=== PATIENT | female | born 1935 | race Caucasian/White ===

== ENCOUNTER 2022-05-12 19:13 | Emergency (ER) | payer OTHER, BC ==
--- OUTSIDE RECORDS SUMMARY | 2022-05-12 19:17 | XMS REPORT | Continuity of Care Document ---
:1935 Author Organization [facility] t Address [address] [place] [address] Care Team Providers Name Role Phone Jacky Rockwell Primary Care Physician KELSIE COLLINS Attending Clinician Unavailable Kelsie Collins Attending Clinician KELSIE COLLINS Attending Clinician Unavailable GERARD MCKEON Attending Clinician Unavailable Gerard Mckeon Attending Clinician Nicholas Oviedo Attending Clinician NICHOLAS OVIEDO Attending Clinician Unavailable JACKY ROCKWELL Attending Clinician Unavailable Josep Serrano Attending Clinician Naeem Chi Attending Clinician GERARD MCKEON Admitting Clinician Unavailable Gerard Mckeon Admitting Clinician NICHOLAS OVIEDO Admitting Clinician Unavailable Josep Serrano Admitting Clinician Naeem Chi Admitting Clinician Payers Payer Name Policy Type Policy Number Effective Date Expiration Date S ource MEDICARE PART A [id number] 2002 AND B 00:00:00 [facility] [id number] 2015 [facility] 00:00:00 [facility] Medicare A & B [id number] 2002 [facility] 00:00:00 Patient Medical Center Problems Condition Condition Condition Status Onset Resolution Last Treating Co mments Source Name Details Category Date Date Treatment Clinician Date Closed Closed Disease Active 2021-03 [place] fracture fracture 04-08 Health of both of both 00:00: calcanei calcanei 00 Allergies, Adverse Reactions, Alerts This patient has no known allergies or adverse reactions. Social History Social Habit Start Date Stop Date Quantity Comments Source Exposure to 2022-04-10 2022-04-20 Not sure [facility] SARS-CoV-2 (event) 00:00:00 10:35:00 Alcohol intake 2022-04-20 2022-04-20 Ex-drinker [facility] 00:00:00 00:00:00 (finding) Tobacco use and 2022-02-05 2022-02-05 Smokeless tobacco [facility] exposure 00:00:00 00:00:00 non-user Sex Ass[birth year] At [birth year] [facility] 00:00:00 00:00:00 Smoking Status Start Date Stop Date Source Never smoked tobacco [facility] Medications Ordered Filled Start Stop Current Ordering Indication Dosage Frequency Signature Comments Components Source Medication Medication Date Date Medication? Clinician (SIG) Name Name traMADol 2021-03 Yes [id number] 50mg Q6H Take 1 [facility] (Ultram) 50 2-05 tablet (50 He alth MG tablet 00:00: mg total) 00 by mouth every 6 (six) hours if needed for moderate pain. traMADol 2021-03 Yes [id number] 50mg Q6H Take 1 [facility] (Ultram) 50 2-05 tablet (50 He alth MG tablet 00:00: mg total) 00 by mouth every 6 (six) hours if needed for moderate pain. traMADol 2021-03 Yes [id number] 50mg Q6H Take 1 [facility] (Ultram) 50 2-05 tablet (50 He alth MG tablet 00:00: mg total) 00 by mouth every 6 (six) hours if needed for moderate pain. traMADol 2021-03 Yes [id number] 50mg Q6H Take 1 [facility] (Ultram) 50 2-05 tablet (50 He alth MG tablet 00:00: mg total) 00 by mouth every 6 (six) hours if needed for moderate pain. traMADol 2021-03 Yes [id number] 50mg Q6H Take 1 [facility] (Ultram) 50 2-05 tablet (50 He alth MG tablet 00:00: mg total) 00 by mouth every 6 (six) hours if needed for moderate pain. traMADol 2021-03 Yes Take by [facility] (Ultram) 50 2-02 mouth. Health MG tablet 14:27: 25 traMADol 2021-03 Yes Take by UT (Ultram) 50 2-02 mouth. Health MG tablet 14:27: 25 traMADol 2021-03 Yes Take by UT (Ultram) 50 2-02 mouth. Health MG tablet 14:27: 25 traMADol 2021-03 Yes Take by UT (Ultram) 50 2-02 mouth. Health MG tablet 14:27: 25 traMADol 2021-03 Yes Take by UT (Ultram) 50 2-02 mouth. Health MG tablet 14:27: 25 traMADol 2021-03 Yes Take by UT (Ultram) 50 2-02 mouth. Health MG tablet 14:27: 25 omeprazole 2021-03 Yes Daily [facility] (PriLOSEC) 2-[address] 14:26: capsule 16 gabapentin 2021-03 Yes Three [facility] (Neurontin) 2-02 Times A [facility]alt [facility] 300 MG 14:26: Day capsule 16 omeprazole 2021-03 Yes Daily [facility] (PriLOSEC) 2-[address] 14:26: capsule 16 gabapentin 2021-03 Yes Three [facility] (Neurontin) 2-02 Times A [facility] 300 MG 14:26: Day capsule 16 omeprazole 2021-03 Yes Daily [facility] (PriLOSEC) 2-[address] 14:26: capsule 16 gabapentin 2021-03 Yes Three [facility] (Neurontin) 2-02 Times A [facility]alt [facility] 300 MG 14:26: Day capsule 16 omeprazole 2021-03 Yes Daily [facility] (PriLOSEC) 2-[address] 14:26: capsule 16 gabapentin 2021-03 Yes Three UT (Neurontin) 2-02 Times A [facility]alt [facility] 300 MG 14:26: Day capsule 16 omeprazole 2021-03 Yes Daily [facility] (PriLOSEC) 2-[address] 14:26: capsule 16 gabapentin 2021-03 Yes Three UT (Neurontin) 2-02 Times A [facility]alt [facility] 300 MG 14:26: Day capsule 16 omeprazole 2021-03 Yes Daily [facility] (PriLOSEC) 2-[address] 14:: capsule 16 gabapentin 2021-03 Yes Three UT (Neurontin) 2-02 Times A [facility]alt [facility] 300 MG 14:26: Day capsule 16 gabapentin 2021-03 Yes 800mg Q.[id number] Take 800 UT (Neurontin) 0-31 [id number] mg by H ealth 400 MG 00:00: 3D mouth in capsule 00 the morning and 800 mg at noon and 800 mg in the evening. gabapentin 2021-03 Yes 800mg Q.[id number] Take 800 UT (Neurontin) 0-31 [id number] mg by H ealth 400 MG 00:00: 3D mouth in capsule 00 the morning and 800 mg at noon and 800 mg in the evening. gabapentin 2021-03 Yes 800mg Q.[id number] Take 800 UT (Neurontin) 0-31 [id number] mg by H ealth 400 MG 00:00: 3D mouth in capsule 00 the morning and 800 mg at noon and 800 mg in the evening. gabapentin 2021-03 Yes 800mg Q.[id number] Take 800 UT (Neurontin) 0-31 [id number] mg by H ealth 400 MG 00:00: 3D mouth in capsule 00 the morning and 800 mg at noon and 800 mg in the evening. gabapentin 2021-03 Yes 800mg Q.[id number] Take 800 UT (Neurontin) 0-31 [id number] mg by H ealth 400 MG 00:00: 3D mouth in capsule 00 the morning and 800 mg at noon and 800 mg in the evening. gabapentin 2021-03 Yes 800mg Q.[id number] Take 800 UT (Neurontin) 0-31 [id number] mg by H ealth 400 MG 00:00: 3D mouth in capsule 00 the morning and 800 mg at noon and 800 mg in the evening. Ciprofloxac Ciprofloxac 2019-0 Yes Juwan [address] [facility] in Hcl in Hcl 8-13 [place] [facility] (Cipro) 500 (Cipro) 500 00:00: Pa Patient Mg Tablet Mg Tablet 00 Medic al Center Acetaminoph Acetaminoph Yes [address] [facility] en 325 Mg en 325 Mg Hours as L ukes Tablet Tablet needed for [facility] Alendronate Alendronate Yes [address] [facility] Sodium 70 Sodium 70 [facility] Mg Tablet Mg Tablet [facility] Ascorbic Ascorbic Yes Daily [facility] Acid Acid [facility] (Vitamin C) (Vitamin C) P atient 500 Mg 500 Mg Medical Capsule.er Capsule.er Ceferino ter Cholecalcif Cholecalcif Yes [address] [facility] (Vitamin (Vitamin Patient D3) D3) Medical (Vitamin D) (Vitamin D) C enter 400 Unit 400 Unit Capsule Capsule Cyanocobala Cyanocobala Yes Monthly [facility] min min [facility] (Vitamin (Vitamin Patient B-12) 1,000 B-12) 1,000 M edical Mcg Tab Mcg Tab Center Gabapentin Gabapentin Yes [address] 400 Mg 400 Mg Times A [facility] Capsule Capsule Day Patient [facility] Meloxicam Meloxicam Yes 7.[address] 7.5 Mg 7.5 Mg [facility] Tablet Tablet Patient [facility] Omeprazole Omeprazole Yes [address] 40 Mg 40 Mg [facility] Capsule.dr Yee.dr Vergara [facility] Pramipexole Pramipexole Yes .[address] Di-Hcl Di-Hcl Times A [facility] (Pramipexol (Pramipexol Day P atient e e Medical Dihydrochlo Dihydrochlo C enter ride) 0.25 ride) 0.25 Mg Tablet Mg Tablet Tylenol Pm Tylenol Pm Yes 1 Bedtime [facility] Patient [facility] Center Procedures Procedure Date / Time Performed Performing Clinician [facility] SPLINT APPLICATION 2022-02-05 20:15:00 Darius Becker [facility] Total replacement of 2018-10-16 00:00:00 NICHOLAS OVIEDO [facility] knee joint Patient [facility] Encounters Start End Encounter Admission Attending Care Care Encounter Source Date/Time Date/Time Type Type Clinicians Facility Department ID 2022-03-17 Outpatient [facility] [id number] [place] 10:55:54 [id number] [facility] 2022-02-05 Outpatient [facility] [id number] [place] 13:34:57 [id number] [facility] 2022-02-01 Outpatient [facility] [id number] [place] 10:22:46 [id number] [facility] 2022-01-26 Outpatient [facility] [id number] [place] 13:02:56 [id number] [facility] 2022-05-12 2022-05-12 Outpatient GAUV[place], [facility] [id number] [place] 10:45:00 10:45:00 [facility] 2022-05-12 2022-05-12 Outpatient [facility] [id number] [place] 10:45:00 10:45:00 [facility] 2022-05-10 2022-05-10 Outpatient [facility] [id number] [place] 00:00:00 00:00:00 [facility] 2022-04-20 2022-04-20 Outpatient [facility] [id number] [place] 10:45:00 12:49:08 [facility] 2022-04-20 2022-04-20 Office GAUVAIN, [facility] [id number] [place] 10:45:00 12:48:56 [id number] [facility] MEDICAL [id number] [address] 4 [id number] 2022-04-12 2022-04-12 Outpatient NAMUVAIN, [facility] [id number] [place] 13:45:00 13:45:00 [facility] 2022-04-12 2022-04-12 Outpatient [facility] [id number] [place] 13:45:00 13:45:00 [facility] 2022-03-22 2022-03-22 Outpatient [facility] [id number] [place] 00:00:00 16:39:02 [facility] 2022-03-22 2022-03-22 Office Gauvain, [facility] [id number] [place] 13:45:00 14:45:49 [id number] [facility] MEDICAL [id number] [address] 5 [id number] 2022-02-22 2022-02-22 Outpatient [facility] [id number] [place] 00:00:00 16:44:02 [facility] 2022-02-22 2022-02-22 Office Gauvain, [facility] [id number] UT 14:45:00 16:43:46 Visit Kelsie [place] 350.1.13.58 [facility] [id number] [address] [id number] 2022-02-09 2022-02-09 Outpatient Karina, [facility] MHPL [id number] 12:28:00 22:25:[address] 2022-02-09 2022-02-09 Outpatient KARINA, MHBL MHBL [id number] MHBL 12:28:00 22:25:00 [facility] 2022-02-09 2022-02-09 Outpatient KARINA, [facility] [id number] UT 17:00:00 17:00:00 [facility] 2022-02-05 2022-02-05 Office Karina [facility] [id number] UT 14:15:00 17:06:01 Visit [facility] [id number] [facility] [id number] [address] [id number] 2022-01-26 2022-01-28 Inpatient E CECILLE [facility] [id number] 15:42:00 12:49:00 [facility] Derik julio [facility] 2022-01-25 2022-01-28 Outpatient Linda, MHSE MHSE [id number] 12:45:46 12:49:00 Sali 00 Frankyjihugo 2018-12-05 2019-01-03 Outpatient Ivelisse [id number] 13:50:00 23:59:00 Nicholas Mendoza [id number] 2018-10-16 2018-10-16 Admitted 3 IVELISSE [facility] [id number] 10:13:00 10:13:00 Inpatient NICHOLAS mccracken (obs) [facility] 2018-06-11 2018-06-12 Outpatient Maggie MHSE MHSE [id number] 09:11:00 15:09:00 , Josep 03 Wesley 2018-06-11 2018-06-11 Outpatient E [facility] [place] MED [id number] 14:38:00 14:38:00 [facility] 2016-07-01 2016-07-01 Outpatient MARIANNE Chi [facility] [place] [id number] 11:07:00 23:59:00 Naeem 17 2015 2015 Outpatient Alon [facility] [id number] 12:27:00 23:59:00 Naeem 02 Results Test Description Test Time Test Comments Results Result Comments Source Hemoglobin 2018-10-17 05:50:00 Test Item Value Reference Range Interpretation Comme nts Hemoglobin (test code = 55496-3) 8.7 12.0-16.0 [facility] 05:50:00 Test Item Value Reference Range Interpretation Comments Hematocrit (test code = 4544-3) 26.8 34.2-44.1 L [facility] 1-2 [id number] 11:43:00 [facility] [address] [place] [address] Patient Name: KATHRINE ESTRADA MR #: [id number] : 1935 Age/Sex: 83/F Req #: [id number] Adm Physician: NICHOLAS OVIEDO MD Ordered by: NICHOLAS OVIEDO MD Report #: [id number] [facility] Room[facility]Bed: [place] [address] Procedure: [id number] DX/KNEE RIGHT 1-2 VIEWS Exam Date: 10/16/18 ExamTime: 1110 REPORT STATUS: Signed EXAMINATION: KNEE RIGHT 1-2 VIEWS INDICATION: Postoperative COMPARISON: None FINDINGS: AP and lateral views of the right knee demonstrate anatomic alignment status post right total knee replacement. No unexpected acute fracture. Subcutaneous emphysema and surgical skin kaya in place. Small joint effusion. IMPRESSION: Anatomic alignment status post right total kneereplacement. Signed by: Nicole Wheeler MD on 10/16/2018 11:43 AM Dictated By: NICOLE WHEELER MD 1143 Transcribed By: LOUISA on 10/16/18 1143 COPY TO: NICHOLAS OVIEDO MD CHEST 2 [id number] 13:05:00 [facility] [address] [place] [address] Patient Name: KATHIRNE ESTRADA MR #: [id number] : 1935 Age/Sex: 83/F Req #: [id number] Adm Physician: Ordered by: JACKY ROCKWELL MD Report #: [id number] Location: [facility] Room/Bed: Procedure: [id number] DX/CHEST 2 VIEWS Exam Date: 10/11/18 Exam Time: 1150 REPORT STATUS: Signed EXAMINATION: CHEST 2 VIEWS INDICATION: Pre-operative COMPARISON: Chest radiograph of 05/30/2018 FINDINGS: LINES/TUBES:None LUNGS:The lungs are hyperinflated. Mild bilateral upper lobe predominant emphysema. No focal consolidation or pulmonary edema. Right lower lobe calcified granuloma. PLEURA:No pleuraleffusion or pneumothorax. MEDIASTINUM:The cardiomediastinal silhouette appears normal in size and shape. Atherosclerotic calcifications of the thoracic aorta. BONES/SOFT TISSUES:Compression fractures of 3 contiguous vertebral bodies, likely T12, L1 and L2. ABDOMEN:No free air under the diaphragm. IMPRESSION: Hyperinflated lungs. No focal pneumonia or pulmonary edema. Age-indeterminate compression frac tures likely at T12, L1 and L2. Signed by: Nicole Wheeler MD on 10/11/2018 1:09 PM Dictated By: NICOLE WHEELER MD 1309 Transcribed By: LOUISA on 10/11/18 130 COPY TO: JACKY ROCKWELL [facility] 2 [id number] 13:59:00 [place] [address] Patient Name: KATHRINE ESTRADA MR #: [id number] : 1935 Age/Sex: 82/F Req #: [id number] Adm Physician: Ordered by: JACKY ROCKWELL MD Report #: [id number] Location: [facility] Room/Bed: Procedure: [id number] DX/CHEST 2 VIEWS Exam Date: Exam Time: REPORT STATUS: Signed EXAMINATION: PA and lateral views of the chest. COMPARISON: None CLINICAL HISTORY: Bronchitis DISCUSSION: Lines/tubes: None. Lungs: The lungs are well inflated and clear. No pneumonia or pulmonary edema. Pleura: No pleural effusion or pneumothorax. Heart and mediastinum: The cardiomediastinal silhouette is normal. Bones and soft tissues: No acute bony abnormalities. Remote compression fractures of the mid thoracic spine. IMPRESSION: No acute cardiopulmonary abnormalities. Signed by: Dr. Genevieve Valiente M.D. on 05/30/2018 2:00 PM Dictated By: GENEVIEVE VALIENTE MD 1400 Transcribed By: LOUISA on 05/30/18 1400 COPY TO: JACKY ROCKWELL MD
[2022-05-12] MEDS ORDERED: ONDANSETRON 4 MG/2 ML VIAL ONE (20:23)
[2022-05-12] MEDS ORDERED: NA CHLORIDE 0.9% 500 ML ONE (20:23)
[2022-05-12 21:11] LABS: SARS-CoV-2 Antigen Rapid Res Negative (Negative)
[2022-05-12] MEDS ORDERED: ACETAMINOPHEN 500 MG TAB ONE (21:29)
[2022-05-12 22:22] LABS: Absolute Lymphocytes (CBC) 2.3 K/uL (0.7-4.9); Lymphocytes % 25.1 % (15.3-44.8); MCV 74.6 fL (80-100); MPV 7.8 fL (7.6-11.3); RBC Red Blood Cell Count 2.74 M/uL (3.86-4.86)
[2022-05-12 22:24] LABS: Hematocrit 20.4 % (36.0-45.0)
[2022-05-12 22:35] LABS: AST/SGOT 9 U/L (15-37); Albumin 2.7 g/dL (3.4-5.0); Alkaline Phosphatase 40 U/L (45-117); BUN Blood Urea Nitrogen 31 mg/dL (7-18); Bicarbonate 24 mmol/L (21-32); Bilirubin Total 0.3 mg/dL (0.2-1.0); Glomerular Filtration Rate 88 ml/min (=/>90); Glucose Level 103 mg/dL (74-106); Lipase 12 U/L (13-75); Potassium 3.4 mmol/L (3.5-5.1); Protein, Total 5.9 g/dL (6.4-8.2); Sodium Level 138 mmol/L (136-145); Troponin High Sensitivity 5.8 pg/mL (<58.9)
[2022-05-12] MEDS ORDERED: PANTOPRAZOLE 40 MG INJ ONE (22:37)
[2022-05-12 22:46] LABS: ALT/SGPT < 10 U/L (13-56)
[2022-05-12] MEDS ORDERED: NA CHLORIDE 0.9% 250 ML ONE (23:17)
[2022-05-12 23:24] LABS: Protime INR 1.17
[2022-05-13] MEDS ORDERED: GABAPENTIN 300 MG CAP ONE (01:36)
[2022-05-13 03:44] VITALS: BP 142/83; TEMP 98.7; O2SAT 95
--- NOTE | 2022-05-13 16:20 | EKG ---
Test Date: 2022-05-12 Test Time: 21:21:48 [employer] Cutter: JIGAR MEASUREMENT RESULTS: Intervals: Rate: 111 IN: 168 QRSD: 66 QT: 340 QTc: 462 [place]: P: 72 IN: 168 QRS: 63 T: 79 INTERPRETIVE STATEMENTS: Sinus tachycardia Anterior infarct, age undetermined Abnormal ECG No previous ECG available for comparison Electronically Signed On 05-13-22 16:19:29 CHIEF MECHANICAL ENGINEER by Jose Medley
--- NOTE | 2022-05-28 15:34 | ER ---
Nurse's Notes [facility] Name: Juliann Shelton Age: 86 yrs Sex: Female : 1935 Arrival Date: 05/12/2022 Time: 19:40 Bed 18 Private MD: Diagnosis: GI Bleed/ Gastrointestinal hemorrhage, unspecified Presentation: 05/12 19:49 Chief complaint: Patient states: she has not been feeling well for 2 days feels weak, bb feels like she is going to pass out daughter states she has been vomiting several times dark colored emesis. Coronavirus screen: At this time, the client does not indicate any symptoms associated with coronavirus-19. Ebola Screen: No symptoms or risks identified at this time. Initial Sepsis Screen: Does the patient meet any 2 criteria? No. Patient's initial sepsis screen is negative. Does the patient have a suspected source of infection? No. Patient's initial sepsis screen is negative. Risk Assessment: Do you want to hurt yourself or someone else? Patient reports no desire to harm self or others. Onset of symptoms was May 10, 2022. 19:49 Method Of Arrival: EMS bb 19:49 Acuity: JOEY 2 bb Triage Assessment: 19:51 General: Appears uncomfortable, ill, Behavior is flat, listless. Neuro: Level of bb Consciousness is listless, Oriented to person, place, situation. Cardiovascular: Capillary refill < 3 seconds Patient's skin is warm and dry. Rhythm is sinus tachycardia. Respiratory: Respiratory effort is unlabored. GI: Reports vomiting. Derm: Skin is pale. Musculoskeletal: Circulation, motion, and sensation intact. Historical: - Allergies: 19:51 No Known Allergies; bb - Home Meds: 19:51 tramadol-acetaminophen 37.5-325 mg Oral tablet 2 tab 2 times per day [Active]; bb sennosides oral [Active]; - Immunization history:: Pfizer x 3. - Social history:: Smoking status: Patient denies any tobacco usage or history of. Screenin:43 [facility] ED Fall Risk Assessment (Adult) History of falling in the last 3 months, aa9 including since admission No falls in past 3 months (0 pts) Confusion or Disorientation No (0 pts) Intoxicated or Sedated No (0 pts) Impaired Gait Yes (1 pt) Mobility Assist Device Used Yes (1 pt) Altered Elimination Yes (1 pt) Score/Fall Risk Level 3 or more points = High Risk Oriented to surroundings, Maintained a safe environment, Educated pt \T\ family on fall prevention, incl call for assistance when getting out of bed, Provided non-skid footwear. Abuse screen: Denies threats or abuse. Denies injuries from another. Nutritional screening: Has had N/V for 3 or more days. Nutritional screening: Has had N/V for 3 or more days. Tuberculosis screening: No symptoms or risk factors identified. Assessment: 20:30 General: Appears uncomfortable, Behavior is cooperative, anxious. Pain: Denies pain. aa9 20:30 General: Reports generalized weakness. Neuro: Level of Consciousness is awake, alert, aa9 obeys commands, Oriented to person, place, time, situation. Cardiovascular: Patient's skin is warm and dry. Rhythm is sinus tachycardia. Respiratory: Airway is patent Respiratory effort is even, unlabored. GI: Abdomen is flat, Reports nausea, vomiting, Patient currently denies diarrhea. : No signs and/or symptoms were reported regarding the genitourinary system. Derm: Skin is intact, is fragile, is thin, Skin is pale. 22:42 Reassessment: Patient appears in no apparent distress at this time. pt signed consent aa9 forms for blood transfusion. 23:55 Reassessment: Patient appears in no apparent distress at this time. Blood products aa9 infusing via L FA IV site, Pt tolerating well, daughter at bedside, VS are stable. 05/13 00:00 Reassessment: Patient appears in no apparent distress at this time. Patient is alert, aa9 oriented x 3, equal unlabored respirations, skin warm/dry/pink. Patient states feeling better. 01:12 Reassessment: Patient appears in no apparent distress at this time. Patient and/or aa9 family updated on plan of care and expected duration. Pain level reassessed. Patient is alert, oriented x 3, equal unlabored respirations, skin warm/dry/pink. 02:10 Reassessment: Patient appears in no apparent distress at this time. Patient and/or aa9 family updated on plan of care and expected duration. Pain level reassessed. Patient is alert, oriented x 3, equal unlabored respirations, skin warm/dry/pink. blood transfusion completed. 02:10 Reassessment: Patient appears in no apparent distress at this time. attempted to call aa9 report to [phone] with no reponse. 02:15 Reassessment: attempted to call report to [phone], no response, daughter signed aa9 consent, denies concerns understands need for transfer. 03:03 Reassessment: Patient appears in no apparent distress at this time. Patient and/or aa9 family updated on plan of care and expected duration. Pain level reassessed. Patient is alert, oriented x 3, equal unlabored respirations, skin warm/dry/pink. Report provided to [facility]. 03:09 Reassessment: Patient appears in no apparent distress at this time. [facility] at bedside. aa9 04:52 Reassessment: Sophie from receiving facility called, report provided. aa9 Vital Signs: 05/12 19:49 BP 109 / 70; Pulse 121; Resp 18 S; Temp 98.1(O); Pulse Ox 95% on R/A; Weight 68.04 kg bb (R); Height 5 ft. 0 in. (R); 20:45 BP 112 / 57; Pulse 105; Resp 16 S; Temp 98.7; Pulse Ox 96% on R/A; aa9 21:00 BP 102 / 64; Pulse 112; Resp 17 S; Pulse Ox 100% on R/A; aa9 22:30 BP 135 / 66; Pulse 116; Resp 18 S; Pulse Ox 100% on R/A; aa9 23:30 BP 145 / 69; Pulse 113; Resp 19 S; Temp 98.7(O); Pulse Ox 100% on R/A; aa9 05/13 00:15 BP 127 / 58; Pulse 116; Resp 19; Temp 98.2(O); Pulse Ox 99% on R/A; aa9 01:30 BP 119 / 76; Pulse 110; Resp 19 S; Temp 98.7(O); Pulse Ox 98% on R/A; aa9 02:10 BP 150 / 76; Pulse 106; Resp 19 S; Temp 98.2(O); Pulse Ox 99% on R/A; aa9 03:00 BP 155 / 64; Pulse 110; Resp 19 S; Temp 98.3(O); Pulse Ox 99% on R/A; aa9 05/12 19:49 Body Mass Index 29.29 (68.04 kg, 152.4 cm) bb ED Course: 05/12 19:40 Patient arrived in ED. vc1 19:44 Efrem Mckeon MD is Attending Physician. bs3 19:51 Triage completed. bb 19:51 Arm band placed on. Family accompanied patient. bb 20:32 Missed attempt(s): 20 gauge in right forearm. Bleeding controlled, band aid applied, aa9 catheter tip intact. 20:57 Em Irby, ISAEL is Primary Nurse. aa9 21:06 Patient has correct armband on for positive identification. Bed in low position. Call aa9 light in reach. Side rails up X2. Client placed on continuous cardiac and pulse oximetry monitoring. NIBP monitoring applied. 22:32 Initiated transfer with Nan at [facility]. rv1 22:40 [facility] declined transfer due to not having specialty needed. rv1 22:43 Initiated transfer with Nan at [facility]. rv1 03 03:00 No provider procedures requiring assistance completed. aa9 03:00 Patient transferred, IV remains in place. aa9 Administered Medications: 05/12 20:57 Drug: NS 0.9% IV 500 ml Route: IV; Rate: bolus; Site: left hand; aa9 22:20 Follow up: Response: No adverse reaction; IV Status: Completed infusion; IV Intake: aa9 500ml 20:57 Drug: Ondansetron IVP 8 mg Route: IVP; Site: left hand; aa9 22:20 Follow up: Response: No adverse reaction aa9 21:26 Drug: Acetaminophen PO 1000 mg Route: PO; aa9 22:19 Follow up: Response: No adverse reaction aa9 23:06 Drug: Pantoprazole IVP 40 mg Route: IVP; Site: left hand; aa9 05/13 01:35 Drug: Gabapentin PO 400 mg Route: PO; aa9 Medication: 05/12 22:44 VIS not applicable for this client. aa9 Intake: 22:20 IV: 500ml; Total: 500ml. aa9 Outcome: 05/13 00:43 ER care complete, transfer ordered by . bs3 03:00 Condition: stable aa9 03:00 Transferred by ground EMS to [facility], Transfer form completed. aa9 03:00 Instructed on the need for transfer. 03:11 Patient left the ED. aa9 Signatures: Thea Kauffman RN RN bb Lyla Ferris RN RN vc1 Em Irby RN RN aa9 Efrem Mckeon MD MD bs3 Linnette Aguilar rv1 Corrections: (The following items were deleted from the chart) 05/12 19:54 19:51 Home Meds: tramadol; bb bb 23:54 22:32 Initiated transfer with Nan at [facility] rv1 rv1 23:56 22:32 Initiated transfer with Nan at [facility]. rv1 rv1 23:56 22:40 [facility] declined transfer due to not having specialty rv1 needed. rv1 23:57 22:43 Initiated transfer with Nan with [facility] at the [facility] rv1 rv1 05/13 02:26 02:23 [facility] called for Doc to Doc with FRANSISCO Connor rv1 rv1
--- NOTE | 2022-05-28 15:34 | EDPHYS ---
Physician Documentation [facility] Name: Juliann Shelton Age: 86 yrs Sex: Female : 1935 Arrival Date: 05/12/2022 Time: 19:40 Bed 18 Private MD: ED Physician Efrem Mckeon HPI: 05/12 20:00 This 86 yrs old Female presents to ER via EMS with complaints of vomiting, bs3 dizziness and weakness. 20:00 Pt reports a hx of gastritis, and ulcer 30+ years ago pw dark brown/black vomit several bs3 times ove the past 24 hours, never had this before, nothing makes it better or worse. After this she developed nausea and dizziness. She now feels weak and tired. no fevers chills chest pain shortness of breath or anything else bothering her no abdominal pain, not on ac. Historical: - Allergies: 19:51 No Known Allergies; bb - Home Meds: 19:51 tramadol-acetaminophen 37.5-325 mg Oral tablet 2 tab 2 times per day [Active]; bb sennosides oral [Active]; - Immunization history:: Pfizer x 3. - Social history:: Smoking status: Patient denies any tobacco usage or history of. ROS: 20:00 Constitutional: Negative for fever, chills, tired bs3 20:00 All other systems are negative. Exam: 20:00 Constitutional: Patient appears frail appears tired and pale Head/Face: bs3 Normocephalic, atraumatic. Eyes: Pupils equal round and reactive to light, extra-ocular motions intact. Lids and lashes normal. ENT: mmm, no posterior phyarngeal erythema Chest/axilla: Normal chest wall appearance and motion. Nontender with no deformity. No lesions are appreciated. Cardiovascular: Tachycardic, no murmur Respiratory: Lungs have equal breath sounds bilaterally, clear to auscultation, no respiratory distress Abdomen/GI: Soft, non-tender, no rebound or guarding, no stool in rectal vault Skin: Warm, dry with normal turgor. Appears pale MS/ Extremity: Pulses equal, no cyanosis. Neurovascular intact. Full, normal range of motion. Neuro: Awake and alert, GCS 15, oriented to person, place, time, and situation. Cranial nerves II-XII grossly intact. Motor strength 5/5 in all extremities. Sensory grossly intact. Psych: Awake, alert, with orientation to person, place and time. Behavior, mood, and affect are within normal limits. 21:23 Sinus tachycardia [address] elevations or depressions QTc 462 as interpreted by myself bs3 Vital Signs: 19:49 BP 109 / 70; Pulse 121; Resp 18 S; Temp 98.1(O); Pulse Ox 95% on R/A; Weight 68.04 kg bb (R); Height 5 ft. 0 in. (R); 20:45 BP 112 / 57; Pulse 105; Resp 16 S; Temp 98.7; Pulse Ox 96% on R/A; aa9 21:00 BP 102 / 64; Pulse 112; Resp 17 S; Pulse Ox 100% on R/A; aa9 22:30 BP 135 / 66; Pulse 116; Resp 18 S; Pulse Ox 100% on R/A; aa9 23:30 BP 145 / 69; Pulse 113; Resp 19 S; Temp 98.7(O); Pulse Ox 100% on R/A; aa9 05/13 00:15 BP 127 / 58; Pulse 116; Resp 19; Temp 98.2(O); Pulse Ox 99% on R/A; aa9 01:30 BP 119 / 76; Pulse 110; Resp 19 S; Temp 98.7(O); Pulse Ox 98% on R/A; aa9 02:10 BP 150 / 76; Pulse 106; Resp 19 S; Temp 98.2(O); Pulse Ox 99% on R/A; aa9 03:00 BP 155 / 64; Pulse 110; Resp 19 S; Temp 98.3(O); Pulse Ox 99% on R/A; aa9 05/12 19:49 Body Mass Index 29.29 (68.04 kg, 152.4 cm) bb MDM: 05/12 20:00 Differential diagnosis: Nonspecific abd pain, gastritis, cholecystitis, pancreatitis, bs3 viral gastroenteritis, gastroenteritis, myocardial infarction, upper gi bleed. Data reviewed: vital signs, nurses notes, EMS record. Consideration of Admission/Observation Patient was admitted/placed on observation. Test considered but Not performed: CT: Considered CT but no active massive upper GI bleed. Historians other than the Patient: EMS: Saw evidence of coffee-ground emesis at home, reported more tachycardic, given 250cc NS [employer]ICIAN. Daughter/Son: pt tired and frail, therefore daughter provided hx. 20:14 Patient medically screened. bs3 23:00 ED course: Labs notable for anemia given the coffee-ground emesis consistent with upper bs3 GI bleed we will transfuse we will start Protonix we will transfer at patient's request attempting [facility]. 05/13 00:41 ED course: pt accepted by Dr. Melgar at [facility] . bs3 00:42 ED course: [facility]. bs3 05/12 19:59 Order name: CBC with Diff; Complete Time: 00:38 bs3 05/12 19:59 Order name: CMP; Complete Time: 00:38 bs3 05/12 19:59 Order name: Lipase; Complete Time: 00:38 bs3 05/12 19:59 Order name: Troponin High Sensitivity; Complete Time: 00:38 bs3 05/12 19:59 Order name: SARS-COV-2 Antigen Rapid; Complete Time: 21:45 bs3 05/12 19:59 Order name: Type And Screen bs3 05/12 19:59 Order name: Ptt, Activated; Complete Time: 00:38 bs3 05/12 19:59 Order name: PT-INR; Complete Time: 00:38 bs3 05/12 23:03 Order name: ABO/RH no charge; Complete Time: 00:38 EDMS 05/12 23:06 Order name: Packed RBC Leukored EDMS 05/12 19:59 Order name: IV Saline Lock; Complete Time: 21:26 bs3 05/12 19:59 Order name: Labs collected and sent; Complete Time: 22:20 bs3 05/12 20:00 Order name: EKG - Nurse/Tech; Complete Time: 21:26 bs3 05/12 20:00 Order name: IV - Large Bore; Complete Time: 21:26 bs3 05/12 22:29 Order name: Consent for Blood Transfusion; Complete Time: 22:44 bs3 Administered Medications: 05/12 20:57 Drug: NS 0.9% IV 500 ml Route: IV; Rate: bolus; Site: left hand; aa9 22:20 Follow up: Response: No adverse reaction; IV Status: Completed infusion; IV Intake: aa9 500ml 20:57 Drug: Ondansetron IVP 8 mg Route: IVP; Site: left hand; aa9 22:20 Follow up: Response: No adverse reaction aa9 21:26 Drug: Acetaminophen PO 1000 mg Route: PO; aa9 22:19 Follow up: Response: No adverse reaction aa9 23:06 Drug: Pantoprazole IVP 40 mg Route: IVP; Site: left hand; aa9 05/13 01:35 Drug: Gabapentin PO 400 mg Route: PO; aa9 Disposition Summary: 05/13/22 00:43 Transfer Ordered Transfer Location: [facility] bs3 Reason: Higher level of care bs3 Condition: Fair bs3 Problem: new bs3 Symptoms: have improved bs3 Accepting Physician: Dr. melgar(05/13/22 03:11) aa9 Diagnosis - GI Bleed/ Gastrointestinal hemorrhage, unspecified bs3 Discharge Instructions: - Discharge Summary Sheet rv1 Forms: - Medication Reconciliation Form bs3 - SBAR form rv1 Critical care time excluding procedures: 00:42 Critical care time: Bedside Care: 36 minutes, Family Intervention: 5 minutes. Total bs3 time: 41 minutes Signatures: Dispatcher [employer] EDThea Vaca RN RN bb Avalos, Aylin, RN RN aa9 Efrem Mckeon MD MD bs3 Corrections: (The following items were deleted from the chart) 05/12 19:54 19:51 Home Meds: tramadol; jose garcia 20:37 20:00 Constitutional: Patient appears frail appears tired and pale Head/Face: bs3 Normocephalic, atraumatic. Eyes: Pupils equal round and reactive to light, extra-ocular motions intact. Lids and lashes normal. ENT: mmm, no posterior phyarngeal erythema Chest/axilla: Normal chest wall appearance and motion. Nontender with no deformity. No lesions are appreciated. Cardiovascular: Tachycardic, no murmur Respiratory: Lungs have equal breath sounds bilaterally, clear to auscultation, no respiratory distress Abdomen/GI: Soft, non-tender, no rebound or guarding Skin: Warm, dry with normal turgor. Appears pale MS/ Extremity: Pulses equal, no cyanosis. Neurovascular intact. Full, normal range of motion. Neuro: Awake and alert, GCS 15, oriented to person, place, time, and situation. Cranial nerves II-XII grossly intact. Motor strength 5/5 in all extremities. Sensory grossly intact. Psych: Awake, alert, with orientation to person, place and time. Behavior, mood, and affect are within normal limits. bs3 05/13 03:11 00:43 Dr. melgar bs3 aa9
== END 2022-05-13 03:11 | disposition short-term general hospital (02) ==
LOC: ER 19:13
PROC: 30233N1 Transfusion of Nonautologous Red Blood Cells into Peripheral Vein, Percutaneous Approach (ICD-10-PCS; principal; 2022-05-13)
DX: K92.2 Gastrointestinal hemorrhage, unspecified (principal); Z20.822 Contact with and (suspected) exposure to COVID-19
CPT/HCPCS: 96361; 93005; 85025; 36415; 86900; 86850; 85610; 86901; 85730; 84484; 83690; 80053; 96375; 96374; 99285; 87811; 36430; C9113; J2405; P9016; J7050; J7040

== ENCOUNTER 2023-12-27 17:53 | Emergency (ER) | payer OTHER, BC ==
--- NOTE | 2023-12-27 19:41 | RAD REPORT ---
EXAM: Chest Pa And Lat (2 Views) HISTORY: Cough;Congestion COMPARISON: 05/06/2023 FINDINGS: LUNGS/PLEURA: The lungs are clear. No pleural effusions or pneumothorax. No pulmonary edema. MEDIASTINUM: The mediastinal silhouette is within normal limits. CARDIAC: The cardiac silhouette is within normal limits. UPPER ABDOMEN: No significant abnormality. BONES: No acute fracture. Chronic lower thoracic/upper lumbar compression fractures. Remote right-martha ed rib fractures. LINES/TUBES/OTHER: N/A IMPRESSION: No evidence of acute cardiopulmonary disease
[2023-12-27 19:55] LABS: Absolute Eosinophils 0.2 K/uL (0-0.5); Absolute Lymphocytes (CBC) 2.2 K/uL (0.7-4.9); Absolute Monocytes 0.6 K/uL (0.1-1.3); Absolute Neutrophil 2.4 K/uL (1.8-8.0); Basophils % 0.7 % (0-1.3); Eosinophils % 3.2 % (0-4.4); Hemoglobin 12.3 g/dL (12.0-15.0); Lymphocytes % 40.2 % (15.3-44.8); MCH 32.6 pg (27.0-35.0); MCHC 33.4 g/dL (32.0-36.0); MCV 97.7 fL (80-100); Neutrophils % 44.9 % (41.7-73.7); Nucleated Red Blood Cells % 0.1 % (0-0); Platelets 190 thou/uL (152-406); RBC Red Blood Cell Count 3.79 M/uL (3.86-4.86); Red Cell Distribution Width 12.3 % (12.1-15.2)
[2023-12-27 20:11] LABS: Anion Gap 6.9 mEq/L (5.0-15.0); Potassium 3.9 mEq/L (3.5-5.1)
[2023-12-27 20:33] LABS: SARS-CoV-2 Antigen CONTROL BLUE LINE VIS/BG OK; SARS-CoV-2 Antigen Rapid Res Negative (Negative)
[2023-12-27] MEDS ORDERED: METHYLPREDNISOLONE 125 MG INJ ONE (20:36)
[2023-12-27] MEDS ORDERED: ALBUTEROL 2.5 MG/3 ML NEB SOL ONE (20:36)
[2023-12-27] MEDS ORDERED: IPRATROPIUM BROM 0.5MG/2.5ML ONE (20:36)
--- NOTE | 2023-12-27 21:48 | EDPHYS ---
Physician Documentation [facility] Name: Juliann Shelton Age: 88 yrs Sex: Female : 1935 Arrival Date: 12/27/2023 Time: 17:53 Bed 8 Private MD: ED Physician Denilson Fritz HPI: 12/26 18:15 This 88 yrs old Female presents to ER via Ambulatory with complaints of Cough, kb Congestion, Fever. 18:15 Pt is an 88 year old female who presents for 8 day history of cough, congestion, kb headache, fever, bodyaches and fatigue. Denies shortness of breath. States it feels similar to when she had covid in the past. . Historical: - Allergies: 18:11 ciprofloxacin; hb - PMHx: 18:11 chronic back pain; restless leg; hb - PSHx: 18:11 bilateral ankle; bilateral feet; Right knee replacement; Total abdominal hysterectomy; hb - Immunization history:: Adult Immunizations up to date. - Infectious Disease History:: Denies. - Social history:: Smoking status: Patient denies any tobacco usage or history of. ROS: 18:16 Constitutional: As per HPI kb Exam: 12/27 00:21 Constitutional: This is a well developed, well nourished patient who is awake, alert, kb and in no acute distress. Head/Face: Normocephalic, atraumatic. ENT: Moist Mucous membranes Cardiovascular: Regular rate Skin: Warm, dry with normal turgor. Normal color. MS/ Extremity: Pulses equal, no cyanosis. Neurovascular intact. Full, normal range of motion. Neuro: Awake and alert, GCS 15, oriented to person, place, time, and situation. Respiratory: the patient does not display signs of respiratory distress, Respirations: normal, Breath sounds: wheezing: expiratory that is mild, is heard diffusely, Vital Signs: 12/26 18:08 BP 126 / 95; Pulse 89; Resp 28; Temp 97.2; Pulse Ox 91% on R/A; Weight 63.05 kg; Height hb 4 ft. 11 in. ; Pain 1/10; 19:30 BP 101 / 88; Pulse 90; Resp 26; Pulse Ox 92% ; cp4 20:30 BP 116 / 64; Pulse 84; Resp 24; Pulse Ox 92% ; cp4 21:30 BP 110 / 60; Pulse 80; Resp 20 S; Pulse Ox 94% on R/A; br2 18:08 Body Mass Index 28.07 (63.05 kg, 149.86 cm) hb 18:08 Pain Scale: Adult hb MDM: 18:02 Medical Screening Exam initiated kb 12/27 00:21 Differential Diagnosis: Other Bronchitis, pneumonia, flu, COVID, RSV, URI. Data kb reviewed: vital signs, nurses notes. Historians other than the Patient: Daughter/Son: Daughter. Counseling: I had a detailed discussion with the patient and/or guardian regarding the historical points, exam findings, and any diagnostic results supporting the discharge/admit diagnosis, lab results, radiology results, the need for outpatient follow up, a family practitioner, to return to the emergency department if symptoms worsen or persist or if there are any questions or concerns that arise at home. ED course: Patient educated on plan of care and diagnostic results. Patient in agreement. After neb treatment and steroids patient reported she was ready to go home.. 12/26 18:19 Order name: SARS-COV-2 Antigen Rapid; Complete Time: 20:35 kb 12/26 18:19 Order name: Flu; Complete Time: 20:35 kb 12/26 18:19 Order name: RSV; Complete Time: 20:35 kb 12/26 18:19 Order name: CBC with Diff; Complete Time: 19:59 kb 12/26 18:19 Order name: Basic Metabolic Panel; Complete Time: 20:15 kb 12/26 18:19 Order name: Chest Pa And Lat (2 Views) XRAY; Complete Time: 19:42 kb 12/26 18: Order name: IV Start; Complete Time: 20:29 kb Administered Medications: 12/26 21:10 Drug: MethylPrednisoLONE IVP 125 mg IVP once Route: IVP; Site: right antecubital; br2 22:00 Follow up: Response: No adverse reaction br2 21:11 Drug: Albuterol Inhalation 2.5 mg Inhalation once Route: Inhalation; br2 22:00 Follow up: Response: No adverse reaction br2 21:11 Drug: Ipratropium Inhalation Aerosol 0.5 mg Inhalation once Route: Inhalation; br2 22:00 Follow up: Response: No adverse reaction br2 Disposition Summary: 12/27/23 21:48 Discharge Ordered Notes: Location: Home kb Condition: Stable kb Diagnosis - Cough kb - Fever, unspecified kb Followup: kb - With: Emergency Department - When: As needed - Reason: Worsening of condition Followup: kb - With: Private Physician - When: 2 - 3 days - Reason: Recheck today's complaints, Continuance of care, Re-evaluation by your physician Discharge Instructions: - Discharge Summary Sheet kb - Acute Bronchitis, Adult, [id number] kb Forms: - Medication Reconciliation Form kb - Antibiotic Education kb - Prescription Opioid Use kb - Patient Portal Instructions kb - Leadership Thank You Letter kb Prescriptions: - albuterol sulfate 90 mcg/actuation Inhalation HFA Aerosol Inhaler - inhale 2 puff INHALATION route every 4 to 6 hours As needed; 1 Unspecified; kb Refills: 0, Product Selection Permitted - Prednisone 20 mg Oral Tablet - take 1 tablet ORAL route once daily for 5 days; 5 tablet; Refills: 0, Product kb Selection Permitted - Zithromax 500 mg Oral Tablet - take 1 tablet ORAL route once daily for 5 days; 5 tablet; Refills: 0, Product kb Selection Permitted Signatures: Dispatcher [employer] EDMS Marium Trujillo, FISH WORM GROWER-C FISH WORM GROWER-Ckb Chelsie Quinones, RN RN Edie Arellano, RN RN br2 Corrections: (The following items were deleted from the chart) 18:19 18:19 SARS-COV-2 Antigen Rapid+I.LAB.BRZ ordered. EDMS EDMS 18:19 18:19 Influenza Screen (A \T\ B)+BA.LAB.BRZ ordered. EDMS EDMS 18:19 18:19 Respiratory Syncytial Virus Ag+BA.LAB.BRZ ordered. EDMS EDMS 18:19 18:19 CBC+H.LAB.BRZ ordered. EDMS EDMS 18:19 18:19 BASIC METABOLIC PANEL+C.LAB.BRZ ordered. EDMS EDMS 18:19 18:19 Chest Pa And Lat (2 Views)+RAD.RAD.BRZ ordered. EDMS EDMS
--- NOTE | 2023-12-27 21:48 | ER ---
Nurse's Notes [facility] Name: Juliann Shelton Age: 88 yrs Sex: Female : 1935 Arrival Date: 12/27/2023 Time: 17:53 Bed 8 Private MD: Diagnosis: Cough;Fever, unspecified Presentation: 12/26 18:08 Chief complaint: Cough, congestion, headache, body aches, sore throat, and fatigue x 1 hb week. Coronavirus screen: Client presents with at least one sign or symptom that may indicate coronavirus-19. Provider contacted for isolation considerations. Ebola Screen: No symptoms or risks identified at this time. Initial Sepsis Screen: Does the patient meet any 2 criteria? No. Patient's initial sepsis screen is negative. Does the patient have a suspected source of infection? No. Patient's initial sepsis screen is negative. Risk Assessment: Do you want to hurt yourself or someone else? Patient reports no desire to harm self or others. Onset of symptoms was December 19, 2023. 18:08 Method Of Arrival: Ambulatory hb 18:08 Acuity: JOEY 3 hb Historical: - Allergies: 18:11 ciprofloxacin; hb - PMHx: 18:11 chronic back pain; restless leg; hb - PSHx: 18:11 bilateral ankle; bilateral feet; Right knee replacement; Total abdominal hysterectomy; hb - Immunization history:: Adult Immunizations up to date. - Infectious Disease History:: Denies. - Social history:: Smoking status: Patient denies any tobacco usage or history of. Screenin:08 [facility] ED Fall Risk Assessment (Adult) History of falling in the last 3 months, br2 including since admission No falls in past 3 months (0 pts) Confusion or Disorientation No (0 pts) Intoxicated or Sedated No (0 pts) Impaired Gait Yes (1 pt) Mobility Assist Device Used Yes (1 pt) Altered Elimination No (0 pt) Score/Fall Risk Level 0 - 2 = Low Risk. Abuse screen: Denies threats or abuse. Denies injuries from another. Nutritional screening: No deficits noted. Tuberculosis screening: No symptoms or risk factors identified. Assessment: 18:15 Reassessment: Patient and/or family updated on plan of care and expected duration. Pain br2 level reassessed. Patient is alert, oriented x 3, equal unlabored respirations, skin warm/dry/pink. General: Appears in no apparent distress. comfortable, Behavior is calm, cooperative. Pain: Complains of pain in head, neck, chest, abdomen, pelvis, right arm, left arm, right leg and left leg. Neuro: Humphrey Agitation-Sedation Scale (RASS): 0 - Alert and Calm Level of Consciousness is awake, alert, obeys commands, Oriented to person, place, time, situation. Cardiovascular: Denies chest pain, Capillary refill < 3 seconds. Respiratory: Airway is patent Respiratory effort is even, unlabored, Respiratory pattern is regular, symmetrical, Breath sounds are coarse bilaterally. GI: No signs and/or symptoms were reported involving the gastrointestinal system. : No signs and/or symptoms were reported regarding the genitourinary system. EENT: No signs and/or symptoms were reported regarding the EENT system. Derm: No signs and/or symptoms reported regarding the dermatologic system. Musculoskeletal: No signs and/or symptoms reported regarding the musculoskeletal system. 21:50 Reassessment: Patient and/or family updated on plan of care and expected duration. Pain br2 level reassessed. Patient is alert, oriented x 3, equal unlabored respirations, skin warm/dry/pink. Patient states feeling better. Patient states symptoms have improved. Vital Signs: 18:08 BP 126 / 95; Pulse 89; Resp 28; Temp 97.2; Pulse Ox 91% on R/A; Weight 63.05 kg; Height hb 4 ft. 11 in. ; Pain 1/10; 19:30 BP 101 / 88; Pulse 90; Resp 26; Pulse Ox 92% ; cp4 20:30 BP 116 / 64; Pulse 84; Resp 24; Pulse Ox 92% ; cp4 21:30 BP 110 / 60; Pulse 80; Resp 20 S; Pulse Ox 94% on R/A; br2 18:08 Body Mass Index 28.07 (63.05 kg, 149.86 cm) hb 18:08 Pain Scale: Adult hb ED Course: 17:55 Patient arrived in ED. mr 18:01 [facility] Tru[facility]C [facility]. kb 18:01 Denilson Fritz MD is Attending Physician. kb 18:08 Patient has correct armband on for positive identification. Bed in low position. Call br2 light in reach. Side rails up X 1. Provided Education on: PLAN OF CARE. 18:11 Triage completed. hb 18:11 Arm band placed on. hb 19:21 Edie Arellano, RN is Primary Nurse. br2 19:39 Chest Pa And Lat (2 Views) XRAY In Process Unspecified. EDMS 20:29 RSV Sent. br2 20:29 Flu Sent. br2 20:29 SARS-COV-2 Antigen Rapid Sent. br2 21:50 IV discontinued, intact, bleeding controlled, No redness/swelling at site. Pressure br2 dressing applied. 21:55 No provider procedures requiring assistance completed. br2 Administered Medications: 21:10 Drug: MethylPrednisoLONE IVP 125 mg IVP once Route: IVP; Site: right antecubital; br2 22:00 Follow up: Response: No adverse reaction br2 21:11 Drug: Albuterol Inhalation 2.5 mg Inhalation once Route: Inhalation; br2 22:00 Follow up: Response: No adverse reaction br2 21:11 Drug: Ipratropium Inhalation Aerosol 0.5 mg Inhalation once Route: Inhalation; br2 22:00 Follow up: Response: No adverse reaction br2 Medication: 22:02 VIS not applicable for this client. br2 Outcome: 21:48 Discharge ordered by MD. kb 21:58 Discharged to home ambulatory, br2 21:58 Condition: improved 21:58 Discharge instructions given to patient, family, Instructed on discharge instructions, follow up and referral plans. Demonstrated understanding of instructions, follow-up care, medications, Prescriptions given X 3, 22:02 Patient left the ED. br2 Signatures: Dispatcher [employer] [facility] Marium Trujillo, DIRECT SUPPORT SPECIALIST-C DIRECT SUPPORT SPECIALIST-Ximena Gomez, Reg Reg mr Chelsie Quinones, RN RN Iveth Juares cp4 Edie Arellano, RN RN br2
[2023-12-28 03:38] VITALS: TEMP 97.2
[2023-12-28 03:39] VITALS: O2SAT 92
[2023-12-28 03:40] VITALS: BP 116/64
== END 2023-12-27 22:02 | disposition home or self-care (01) ==
LOC: ER 17:53
DX: R05.9 Cough, unspecified (principal); R50.9 Fever, unspecified; Z11.52 Encounter for screening for COVID-19
CPT/HCPCS: 85025; 80048; 36415; 87807; 87804 ×2; 71046; 96374; 99284; 87811; J7613; J7644; J2919

== ENCOUNTER 2024-02-11 19:55 | Inpatient (IN) | payer OTHER, BC ==
[2024-02-11] MEDS ORDERED: DIAZEPAM 10 MG/2 ML INJ SYRINGE ONE ×3 (20:18→21:48)
[2024-02-11 20:43] LABS: Absolute Basophils 0.1 K/uL (0-0.5); Absolute Eosinophils 0.2 K/uL (0-0.5); Absolute Lymphocytes (CBC) 1.9 K/uL (0.7-4.9); Absolute Monocytes 0.6 K/uL (0.1-1.3); Absolute Neutrophil 6.4 K/uL (1.8-8.0); Basophils % 0.6 % (0-1.3); Eosinophils % 2.2 % (0-4.4); Hematocrit 36.1 % (36.0-45.0); Hemoglobin 12.2 g/dL (12.0-15.0); MCH 32.9 pg (27.0-35.0); MCHC 33.8 g/dL (32.0-36.0); MCV 97.4 fL (80-100); MPV 7.2 fL (7.6-11.3); Monocytes % 6.2 % (3.3-12.3); Platelets 375 thou/uL (152-406); RBC Red Blood Cell Count 3.71 M/uL (3.86-4.86); Red Cell Distribution Width 13.5 % (12.1-15.2)
[2024-02-11 20:47] LABS: PT Prothrombin Time 12.8 SECONDS (9.4-12.5); PTT, Activated Partial Thromb 29.8 SECONDS (24.3-36.9); Protime INR 1.15
--- NOTE | 2024-02-11 20:50 | RAD REPORT ---
EXAM: Chest Single View HISTORY: COUGH COMPARISON: 12/27/2023 FINDINGS: LUNGS/PLEURA: Increased bronchial wall thickening and interstitial prominence bilaterally. No consoli dation. MEDIASTINUM: The mediastinal silhouette is within normal limits. Hiatal hernia. CARDIAC: The cardiac silhouette is within normal limits. UPPER ABDOMEN: No significant abnormality. BONES: No acute fracture. LINES/TUBES/OTHER: N/A IMPRESSION: Question bronchitis/bronchiolitis. No consolidative airspace disease or pulmonary edema.
[2024-02-11 21:02] LABS: AST/SGOT 14 U/L (15-37); Albumin 3.2 g/dL (3.4-5.0); Albumin/Globulin Ratio 0.7 (1.1-1.8); Alkaline Phosphatase 52 U/L (45-117); Anion Gap 10.2 mEq/L (5.0-15.0); BUN Blood Urea Nitrogen 11 mg/dL (7-18); Bicarbonate 26 mEq/L (21-32); Bilirubin Total 0.6 mg/dL (0.2-1.0); Globulin 4.3 g/dL (2.3-3.5); Glomerular Filtration Rate 80 ml/min (=/>90); Glucose Level 115 mg/dL (74-106); Potassium 3.2 mEq/L (3.5-5.1); Protein, Total 7.5 g/dL (6.4-8.2); Sodium Level 139 mEq/L (136-145)
[2024-02-11 21:16] LABS: ALT/SGPT < 14 U/L (13-56)
--- NOTE | 2024-02-11 21:31 | RAD REPORT ---
EXAMINATION: CT HEAD WITHOUT CONTRAST CLINICAL INDICATION: Female, 88 years old.AMS TECHNIQUE: Axial CT images from the skull base to the vertex without intravenous contrast. Coronal an d sagittal reformatted images were created from the data set. One or more of the following dose reduction techniques were used: Automated exposure control, adjustment of the mA and/or kV according to patient size, and/or iterative reconstruction. Unless otherwise specified, incidental findings do not require dedicated imaging follow-up. [id number]. COMPARISON: No prior exam. FINDINGS: INTRACRANIAL: No acute intracranial hemorrhage. No hydrocephalus. No mass effect or midline shift. Mi ld chronic small vessel ischemic changes. VASCULATURE: No visualized abnormalities in the arteries or dural venous sinuses. SCALP/SKULL: No significant soft tissue or osseous abnormalities. SINUSES: The visualized paranasal sinuses and mastoid air cells are predominantly clear. IMPRESSION: No acute intracranial abnormality.
[2024-02-11] MEDS ORDERED: NA CHLORIDE 0.9% 250 ML ONE (22:34)
[2024-02-11] MEDS ORDERED: KCL 20 MEQ/100 mL IVPB 100 ML IV ONE (22:34)
[2024-02-11] MEDS ORDERED: Magnesium Sulfate 2gm IVPB 2 G/50 ML BAG IV ONE (22:35)
[2024-02-11 22:40] LABS: Calcium Oxalate Crystals- Ur Few /HPF (None Seen); Specific Gravity 1.008 (1.005-1.030); Sqamous Epithelial None Seen /HPF (None Seen); Urine Bacteria 20-50 /HPF (<20); Urine Bilirubin NEGATIVE (Negative); Urine Blood Negative (Negative); Urine Clarity Extremely Turbid (Clear); Urine Color Yellow (Yellow); Urine Culture Reflex Order REFLEXED; Urine Glucose NEGATIVE (Negative); Urine Ketones NEGATIVE (Negative); Urine Microscopic Reflex YN ORDER UMIC; Urine Mucus Slight /HPF (None Seen); Urine Nitrite 2+ (Negative); Urine Protein NEGATIVE (Negative); Urine RBC <5 /HPF (None Seen); Urine Urobilinogen Normal (Normal); Urine WBC Clump Rare /HPF (None Seen)
--- NOTE | 2024-02-11 23:19 | ER ---
Nurse's Notes [facility] Name: Juliann Shelton Age: 88 yrs Sex: Female : 1935 Arrival Date: 02/11/2024 Time: 19:55 Bed 4 Private MD: Diagnosis: UTI/ Urinary tract infection, site not specified;Altered mental status, unspecified Presentation: 02/10 19:57 Chief complaint: Patient's son or daughter states: CONFUSION. AMS. DAUGHTER STATED SHE jj7 CALLED HER AND SHE WAS CONFUSED AND SHE IS NORMALLY WITH IT. CAN'T STOP MOVING. Coronavirus screen: At this time, the client does not indicate any symptoms associated with coronavirus-19. Ebola Screen: No symptoms or risks identified at this time. Initial Sepsis Screen: Does the patient meet any 2 criteria? HR > 90 bpm. Yes Does the patient have a suspected source of infection? No. Patient's initial sepsis screen is negative. Risk Assessment: Do you want to hurt yourself or someone else? Patient reports no desire to harm self or others. Onset of symptoms was February 11, 2024. 19:57 Method Of Arrival: Wheelchair j 19:57 Acuity: JOEY 2 j7 Triage Assessment: 20:03 General: Appears distressed, uncomfortable, Behavior is agitated, anxious, restless. jj7 Pain: Denies pain. Neuro: Level of Consciousness is awake, confused, Oriented to person, place, situation. Historical: - Allergies: 20:03 Ciprofloxacin; jj7 - PMHx: 20:03 chronic back pain; restless leg; jj7 - PSHx: 20:03 bilateral ankle; bilateral feet; Right knee replacement; Total abdominal hysterectomy; jj7 - Immunization history:: Adult Immunizations up to date. - Infectious Disease History:: Denies. - Social history:: Smoking status: Patient denies any tobacco usage or history of. Patient/guardian denies using alcohol, street drugs, IV drugs. Screenin:26 [facility] ED Fall Risk Assessment (Adult) History of falling in the last 3 months, al5 including since admission Yes- single mechanical fall (1 pt) Confusion or Disorientation Yes (5 pts) Intoxicated or Sedated No (0 pts) Impaired Gait Yes (1 pt) Mobility Assist Device Used Yes (1 pt) Altered Elimination Yes (1 pt) Score/Fall Risk Level 3 or more points = High Risk Oriented to surroundings, Maintained a safe environment, Hourly rounding (assess needs \T\ fall precautionary measures) done, Apply high fall risk patient identification: yellow non skid footwear/ fall signage, Utilized family, sitter, or virtual classification clerk as indicated. Abuse screen: Denies threats or abuse. Denies injuries from another. Nutritional screening: No deficits noted. Tuberculosis screening: No symptoms or risk factors identified. Assessment: 20:27 General: Appears distressed, uncomfortable, Behavior is agitated, restless. Pain: al5 Denies pain. Neuro: Level of Consciousness is awake, confused, Oriented to person, place, time. Cardiovascular: Capillary refill < 3 seconds Patient's skin is warm and dry. Respiratory: Airway is patent Respiratory effort is even, unlabored, Respiratory pattern is regular, symmetrical. GI: No signs and/or symptoms were reported involving the gastrointestinal system. : No signs and/or symptoms were reported regarding the genitourinary system. EENT: No signs and/or symptoms were reported regarding the EENT system. Derm: Skin is intact, is thin, Skin is pink, warm \T\ dry. normal. Musculoskeletal: Reports restlessness. 22:43 Reassessment: pt placed on pur wic and diaper changed linens changed. bm8 22:45 Reassessment: Patient appears in no apparent distress at this time. No changes from al5 previously documented assessment. Patient and/or family updated on plan of care and expected duration. Pain level reassessed. Patient is alert, oriented x 3, equal unlabored respirations, skin warm/dry/pink. 02/11 00:00 Reassessment: Patient appears in no apparent distress at this time. No changes from al5 previously documented assessment. Patient and/or family updated on plan of care and expected duration. Pain level reassessed. Patient is alert, oriented x 3, equal unlabored respirations, skin warm/dry/pink. Vital Signs: 02/10 19:57 BP 170 / 115; Pulse 137; Resp 20; Temp 97.9; Pulse Ox 94% ; Weight 64.41 kg; Pain 0/10; jj7 20:05 BP 121 / 80; Pulse 111; Resp 18; Pulse Ox 92% on R/A; al5 20:30 BP 153 / 103; Pulse 133; Resp 19; Pulse Ox 91% on R/A; al5 22:03 Pulse 98; ec2 22:08 BP 154 / 86; Pulse 85; Resp 19; Pulse Ox 98% on 3 lpm NC; al5 22:30 BP 149 / 93; Pulse 123; Resp 18; Pulse Ox 97% on 3 lpm NC; al5 12 00:00 BP 137 / 83; Pulse 90; Resp 19; Pulse Ox 95% on 3 lpm NC; al5 02/10 19:57 Pain Scale: Adult [facility] ED Course: 02/10 19:56 Patient arrived in ED. im 20:03 Triage completed. j7 20:03 Arm band placed on right wrist. j7 20:06 Benjamin Snell MD is Attending Physician. ec2 20:26 Bri Davis RN is Primary Nurse. al5 20:26 Patient has correct armband on for positive identification. Call light in reach. Side al5 rails up X2. daughter at bedside. Provided Education on: plan of care. 20:26 No provider procedures requiring assistance completed. Missed attempt(s): 22 gauge in al5 right forearm. Bleeding controlled, band aid applied, catheter tip intact. 20:27 Initial lab(s) drawn, by me, sent to lab. First set of blood cultures drawn by me. bm8 20:33 Inserted saline lock: 22 gauge in left forearm, using aseptic technique. Blood bm8 collected. Flushed with 10 mL NS. 20:40 Chest Single View XRAY In Process Unspecified. EDMS 21:12 CT Head Brain wo Cont In Process Unspecified. EDMS 21:27 Straight cath inserted, using sterile technique, 14 Fr. Specimen obtained. Returned bm8 kailash urine. Patient tolerated well. Oxygen administration via nasal cannula \T\ 3L/min O2 via placed in mouth for due to pt being a mouth breather. Response to oxygen therapy: symptoms improved. 23:18 Jac Clement MD is Hospitalizing Provider. ec2 02/11 00:41 Patient admitted, IV remains in place. bm8 Administered Medications: 02/10 20:33 Drug: Diazepam IVP 2 mg IVP once Route: IVP; Site: left forearm; bm8 21:42 Follow up: Response: No adverse reaction; Anxiety unchanged al5 21:36 Drug: Diazepam IVP 5 mg IVP once Route: IVP; Site: left forearm; bm8 22:43 Follow up: Response: No adverse reaction; Anxiety decreased al5 22:43 Drug: Potassium Chloride IV 20 mEq IV at calculated rate once; administer over 1-2 al5 hours Route: IV; Rate: calculated rate; Site: left forearm; 02/11 00:42 Follow up: Response: No adverse reaction; IV Status: Completed infusion; IV Intake: bm8 100ml 02/10 22:43 Drug: NS 0.9% IV 250 ml IV at calculated rate once; to be given as a bolus over 30 al5 minutes Route: IV; Rate: calculated rate; Site: left forearm; 02/11 00:41 Follow up: Response: No adverse reaction; IV Status: Completed infusion; IV Intake: bm8 250ml 02/10 22:51 Drug: Magnesium Sulfate IVPB 2 grams IVPB once over 30 mins Route: IVPB; Infused Over: al5 30 mins; Site: left forearm; 02/11 00:42 Follow up: Response: No adverse reaction; IV Status: Completed infusion; IV Intake: bm8 200ml 02/10 23:38 Drug: Rocephin IV 1 grams IV at bolus once; Given slow IV push per pharmacy al5 instructions Route: IV; Rate: bolus; Site: left forearm; 02/11 00:41 Follow up: Response: No adverse reaction; IV Status: Completed infusion; IV Intake: bm8 100ml Medication: 02/10 20:27 VIS not applicable for this client. al5 Intake: 02/11 00:41 IV: 100ml; Total: 100ml. bm8 00:41 IV: 250ml; Total: 350ml. bm8 00:42 IV: 100ml; Total: 450ml. bm8 00:42 IV: 200ml; Total: 650ml. bm8 Outcome: 02/10 23:19 Decision to Hospitalize by Provider. ec2 02/11 00:40 Admitted to Med/surg accompanied by tech, via stretcher, room 213, with chart, bm8 Condition: stable Instructed on the need for admit, 00:42 Patient left the ED. bm8 Signatures: Dispatcher [employer] Lamar Rivera RN RN jj7 Dania Ace Edwin, MD MD ec2 Damián Echeverria, RN RN bm8 Bri Davis, RN RN al5
--- NOTE | 2024-02-11 23:19 | EDPHYS ---
Physician Documentation [facility] Name: Juliann Shelton Age: 88 yrs Sex: Female : 1935 Arrival Date: 02/11/2024 Time: 19:55 Bed 4 Private MD: ED Physician Benjamin Snell HPI: 02/10 20:19 This 88 yrs old Female presents to ER via Wheelchair with complaints of ec2 Altered Mental Status. 20:19 Patient arrives today for evaluation of altered mental status. Patient with issues with ec2 altered mental status as of today. Daughter last saw her yesterday. No reported falls or injuries or trauma the past day. No nausea or vomiting. No cough and cold symptoms, no shortness of breath. Patient takes tramadol and gabapentin chronically for pain.. Historical: - Allergies: 20:03 Ciprofloxacin; jj7 - PMHx: 20:03 chronic back pain; restless leg; jj7 - PSHx: 20:03 bilateral ankle; bilateral feet; Right knee replacement; Total abdominal hysterectomy; jj7 - Immunization history:: Adult Immunizations up to date. - Infectious Disease History:: Denies. - Social history:: Smoking status: Patient denies any tobacco usage or history of. Patient/guardian denies using alcohol, street drugs, IV drugs. ROS: 20:19 Constitutional: as per hpi ec2 Exam: 20:19 Constitutional: GEN: NAD Head: atraumatic Eyes: EOMI Ears: External ears are ec2 normal. CV: regular rate LUNGS: no respiratory distress ABD: non-distended SKIN: no evidence of rashes MSK: no evidence of trauma. Neuro: Cranial nerves II through XII intact, strength intact, no focal neurologic deficit appreciated. Vital Signs: 19:57 BP 170 / 115; Pulse 137; Resp 20; Temp 97.9; Pulse Ox 94% ; Weight 64.41 kg; Pain 0/10; jj7 20:05 BP 121 / 80; Pulse 111; Resp 18; Pulse Ox 92% on R/A; al5 20:30 BP 153 / 103; Pulse 133; Resp 19; Pulse Ox 91% on R/A; al5 22:03 Pulse 98; ec2 22:08 BP 154 / 86; Pulse 85; Resp 19; Pulse Ox 98% on 3 lpm NC; al5 22:30 BP 149 / 93; Pulse 123; Resp 18; Pulse Ox 97% on 3 lpm NC; al5 02/11 00:00 BP 137 / 83; Pulse 90; Resp 19; Pulse Ox 95% on 3 lpm NC; al5 02/10 19:57 Pain Scale: Adult jj7 MDM: 02/10 20:09 Medical Screening Exam initiated ec2 20:20 Data reviewed: vital signs, nurses notes. ED course: Patient arrives today for altered ec2 mental status. Examination is remarkable for neuro intact individuals otherwise in no acute distress with a reassuring examination. Will obtain lab work, CT scan of the head, urine studies.. 22:03 ED course: Metabolic profile shows slight hypokalemia at 3.2. CT scan of the head shows ec2 no acute intracranial normalities. CBC is unrevealing. Lactic acid within normal ranges. Chest x-ray with questionable bronchiolitis or bronchitis. Pending urine studies. Patient without any respiratory symptoms, will forego antibiotic. 22:07 ED course: EKG independently reviewed and interpreted by me, shows normal sinus rhythm, ec2 rate of 93, no acute ST segment elevations, intervals are nonactionable.. 22:53 ED course: Urine infectious appearing. Will treat for urinary tract infection with ec2 ceftriaxone.. 12 20:14 Order name: Blood Culture Adult (2) ec2 02/10 20:14 Order name: CBC with Diff; Complete Time: 20:57 ec2 02/10 20:14 Order name: CMP; Complete Time: 21:46 ec2 02/10 20:14 Order name: Lactate w/ 2H reflex if indic.; Complete Time: 20:57 ec2 02/10 20:14 Order name: Protime (+inr); Complete Time: 20:57 ec2 02/10 20:14 Order name: Ptt, Activated; Complete Time: 20:57 ec2 02/10 20:14 Order name: Urinalysis w/ reflexes; Complete Time: 22:52 ec2 02/10 22:43 Order name: Urine Culture EDMS 02/10 23:28 Order name: Urinalysis w/ reflexes EDMS 02/10 23:28 Order name: CBC with Automated Diff EDMS 02/10 23:28 Order name: CBC with Automated Diff EDMS 02/10 23:28 Order name: Comprehensive Metabolic Panel EDMS 02/10 23:28 Order name: Comprehensive Metabolic Panel EDMS 02/10 23:28 Order name: Magnesium EDMS 02/10 23:28 Order name: Magnesium EDMS 02/10 23:28 Order name: Phosphorus EDMS 02/10 23:28 Order name: Phosphorus EDMS 02/10 20:14 Order name: Chest Single View XRAY; Complete Time: 20:57 ec2 02/10 20:14 Order name: CT Head Brain wo Cont; Complete Time: 21:46 ec2 02/10 20:14 Order name: Cardiac monitoring; Complete Time: 22:43 ec2 02/10 20:14 Order name: Cath; Complete Time: 22:43 ec2 02/10 20:14 Order name: EKG - Nurse/Tech; Complete Time: 22:43 ec2 02/10 20:14 Order name: Labs collected and sent; Complete Time: 20:33 ec2 02/10 20:14 Order name: O2 Per Protocol; Complete Time: 20:33 ec2 02/10 20:14 Order name: O2 Sat Monitoring; Complete Time: 20:33 ec2 02/10 20:14 Order name: Vital Signs; Complete Time: 20:33 ec2 Administered Medications: 20:33 Drug: Diazepam IVP 2 mg IVP once Route: IVP; Site: left forearm; bm8 21:42 Follow up: Response: No adverse reaction; Anxiety unchanged al5 21:36 Drug: Diazepam IVP 5 mg IVP once Route: IVP; Site: left forearm; bm8 22:43 Follow up: Response: No adverse reaction; Anxiety decreased al5 22:43 Drug: Potassium Chloride IV 20 mEq IV at calculated rate once; administer over 1-2 al5 hours Route: IV; Rate: calculated rate; Site: left forearm; 02/11 00:42 Follow up: Response: No adverse reaction; IV Status: Completed infusion; IV Intake: bm8 100ml 02/10 22:43 Drug: NS 0.9% IV 250 ml IV at calculated rate once; to be given as a bolus over 30 al5 minutes Route: IV; Rate: calculated rate; Site: left forearm; 02/11 00:41 Follow up: Response: No adverse reaction; IV Status: Completed infusion; IV Intake: bm8 250ml 02/10 22:51 Drug: Magnesium Sulfate IVPB 2 grams IVPB once over 30 mins Route: IVPB; Infused Over: al5 30 mins; Site: left forearm; 02/11 00:42 Follow up: Response: No adverse reaction; IV Status: Completed infusion; IV Intake: bm8 200ml 02/10 23:38 Drug: Rocephin IV 1 grams IV at bolus once; Given slow IV push per pharmacy al5 instructions Route: IV; Rate: bolus; Site: left forearm; 02/11 00:41 Follow up: Response: No adverse reaction; IV Status: Completed infusion; IV Intake: bm8 100ml Disposition Summary: 02/11/24 23:19 Hospitalization Ordered Notes: Hospitalization Status: Inpatient Admission ec2 Provider: Jac Clement ec2 Location: Telemetry/MedSurg (Inpatient) ec2 Condition: Stable ec2 Problem: new ec2 Symptoms: have improved ec2 Bed/Room Type: Standard ec2 Room Assignment: 213(02/11/24 23:39) rv1 Diagnosis - UTI/ Urinary tract infection, site not specified ec2 - Altered mental status, unspecified ec2 Forms: - Medication Reconciliation Form ec2 - SBAR form ec2 - Leadership Thank You Letter ec2 Signatures: Dispatcher [employer] Lamar Rivera RN RN jLinnette Hahn rv1 Benjamin Snell MD MD ec2 Damián Echeverria RN RN bm8 Bri Davis RN RN al5 Corrections: (The following items were deleted from the chart) 02/10 20:15 20:14 BLOOD CULTURE*+BA.LAB.BRZ ordered. EDMS EDMS 20:15 20:15 CBC+H.LAB.BRZ ordered. EDMS EDMS 20:15 20:15 COMPREHENSIVE METABOLIC PANEL+C.LAB.BRZ ordered. EDMS EDMS 20:15 20:15 LACTATE+C.LAB.BRZ ordered. EDMS EDMS 20:15 20:15 PROTIME (+INR)+COAG.LAB.BRZ ordered. EDMS EDMS 20:15 20:15 PTT, ACTIVATED+COAG.LAB.BRZ ordered. EDMS EDMS 20:15 20:15 Urinalysis+U.LAB.BRZ ordered. EDMS EDMS 20:15 20:15 Chest Single View+RAD.RAD.BRZ ordered. EDMS EDMS 20:15 20:15 Head Brain Wo Cont+CT.RAD.BRZ ordered. EDMS EDMS 20:32 20:14 Accucheck ordered. ec2 8 23:23 20:14 IV Saline Lock - Large Bore ordered. ec2 8 23:39 23:19 ec2 rv1
--- NOTE | 2024-02-11 23:23 | P.HP ---
Certification for Inpatient Patient admitted to: Inpatient With expected LOS: >2 Midnights Practitioner: I am a practitioner with admitting privileges, knowledge of patient current condition, hospital course, and medical plan of care. Services: Services provided to patient in accordance with Admission requirements found in Title 42 Section 412.3 of the Code of Federal Regulations Patient History Date of Service: 02/12/24 Reason for admission: AMS History of Present Illness: 88 yrs old Female with past medical history of chronic back pain and restless leg syndrome was brought to the ER with altered mental status. Patient was agitated and restless in the ER and had to be given Valium. Patient was sleepy and could not offer any history hence most of the history is obtained from the chart review and also talking with the ER physician and family member at the bedside. She had a fall few days ago. Denies hitting head but has difficulty in ambulating. No fever or chills. Denies any nausea or vomiting. Denies any chest pain. Patient was assessed in the ER and had noted to have UTI and was admitted for further management of acute encephalopathy Allergies ciprofloxacin Allergy (Verified 05/06/23 15:48) Itching Home medications list reviewed: Yes Home Medications: Gabapentin 2 cap PO BID 05/01/23 Sennosides [Laxative] 3 tab PO BEDTIME 05/01/23 Tramadol HCl/Acetaminophen [Tramadol-Acetaminophn 37.5-325] 2 tab PO BID 05/01/23 - Past Medical/Surgical History Diabetic: No Past Medical History: Reviewed- Non-Contributory -: Chronic back pain -: Symptomatic anemia -: Restless leg syndrome Past Surgical History: Reviewed- Non-Contributory -: Hysterectomy - Family History Family History: Reviewed- Non-Contributory - Social History Smoking Status: Never smoker Alcohol use: No CD- Drugs: No Review of Systems is unable to be obtained Physical Examination - Vital Signs Temperature: 98.1 F Blood Pressure: 168/82 Pulse: 103 Respirations: 18 Pulse Ox (%): 94 - Physical Exam General: Confused HEENT: Atraumatic, Normocephalic Neck: Supple Respiratory: Clear to auscultation bilaterally Cardiovascular: Regular rate/rhythm, Normal S1 S2 Capillary refill: <2 Seconds Gastrointestinal: Soft and benign, W/out hepatosplenomegaly Musculoskeletal: No clubbing, No swelling Integumentary: No rashes, No breakdown Neurological: Other (Confused , moves all limbs ) Lymphatics: No axilla or inguinal lymphadenopathy - Studies Laboratory Data (last 24 hrs) 02/11/24 02/11/24 02/11/24 20:21 20:21 20:21 WBC 9.10 Hgb 12.2 Hct 36.1 Plt Count 375 PT 12.8 H INR 1.15 APTT 29.8 Sodium 139 Potassium 3.2 L BUN 11 Creatinine 0.73 Glucose 115 H Total Bilirubin 0.6 AST 14 L ALT < 14 Alkaline Phosphatase 52 Assessment and Plan - Plan Acute encephalopathy possibly metabolic versus UTI induced CT head negative for any acute changes Monitor neuro vital signs Monitor telemetry Patient was agitated in the ER and had received Valium UTI Started on antibiotic with Rocephin Will obtain cultures Change antibiotic as per sensitivity History of fall Difficulty in walking with pain in the left lower extremity CT head is negative for any acute changes Will obtain x-rays of the left hip and knee Hypokalemia Replace potassium GI/DVT prophylaxis Advanced directive full code for now Discharge Plan: Home Plan to discharge in: 48 Hours - Advance Directives Does patient have a Living Will: No Does patient have a Durable POA for Healthcare: No Time Spent Managing Pts Care (In Minutes): 48
[2024-02-11] MEDS ORDERED: CEFTRIAXONE 1000 MG/VIAL ONE (23:33)
[2024-02-12 01:03] VITALS: BMI 33.5
[2024-02-12 04:43] LABS: Absolute Eosinophils 0.1 K/uL (0-0.5); Absolute Lymphocytes (CBC) 2.1 K/uL (0.7-4.9); Absolute Monocytes 0.7 K/uL (0.1-1.3); Absolute Neutrophil 5.2 K/uL (1.8-8.0); Basophils % 0.5 % (0-1.3); Eosinophils % 1.1 % (0-4.4); Hematocrit 34.1 % (36.0-45.0); Hemoglobin 11.6 g/dL (12.0-15.0); Lymphocytes % 25.4 % (15.3-44.8); MCH 33.1 pg (27.0-35.0); MCHC 33.9 g/dL (32.0-36.0); MCV 97.6 fL (80-100); MPV 7.3 fL (7.6-11.3); Monocytes % 8.8 % (3.3-12.3); Neutrophils % 64.2 % (41.7-73.7); Nucleated Red Blood Cells % 0.1 % (0-0); Platelets 363 thou/uL (152-406); RBC Red Blood Cell Count 3.49 M/uL (3.86-4.86); Red Cell Distribution Width 13.4 % (12.1-15.2)
[2024-02-12] MEDS: LORazepam 2 MG/ML VIAL IV PRN (04:58)
[2024-02-12 05:05] LABS: AST/SGOT 11 U/L (15-37); Albumin 2.9 g/dL (3.4-5.0); Albumin/Globulin Ratio 0.7 (1.1-1.8); Alkaline Phosphatase 49 U/L (45-117); BUN Blood Urea Nitrogen 10 mg/dL (7-18); Bicarbonate 27 mEq/L (21-32); Bilirubin Total 0.5 mg/dL (0.2-1.0); Glomerular Filtration Rate 85 ml/min (=/>90); Glucose Level 108 mg/dL (74-106); Magnesium 2.4 mg/dL (1.6-2.4); Phosphorus 2.5 mg/dL (2.5-4.9); Protein, Total 6.9 g/dL (6.4-8.2); Sodium Level 142 mEq/L (136-145)
[2024-02-12 05:30] LABS: ALT/SGPT < 14 U/L (13-56)
[2024-02-12] MEDS: POTASSIUM 25 MEQ EFFERV TAB PO ONE (09:00)
[2024-02-12 09:11] LABS: SARS-CoV-2 Antigen CONTROL BLUE LINE VIS/BG OK; SARS-CoV-2 Antigen Rapid Res Negative (Negative)
[2024-02-12] MEDS: CEFTRIAXONE 1,000 MG in NA CHLORIDE 0.9% 50 ML IVPB SCH (09:18)
[2024-02-12] MEDS: POTASS/SODIUM PHOSPHATE 1 PKT POWD.PACK PO SCH (09:18)
[2024-02-12] MEDS: ENOXAPARIN 40 MG/0.4 ML SQ SCH (09:18)
[2024-02-12] MEDS ORDERED: HALOPERIDOL LACT 5 MG/ML INJ IM PRN (09:29)
--- NOTE | 2024-02-12 09:30 | RAD REPORT ---
EXAM: Knee Left 3 View INDICATION: fall COMPARISON: None FINDINGS: No acute fracture. No significant knee effusion. Mild to moderate patellofemoral compartment narrowing and spurring. Other: n/a IMPRESSION: No evidence of acute osseous abnormality involving the imaged knee.
--- NOTE | 2024-02-12 09:30 | RAD REPORT ---
EXAMINATION: Hip Left 2 View CLINICAL INDICATION: Female, 88 years old. Fall COMPARISON: No prior exam. FINDINGS: No acute fracture. No malalignment/dislocation. No significant focal degenerative change. Other: n/a IMPRESSION: No acute osseous abnormality.
[2024-02-12] MEDS: ACETAMINOPHEN 325 MG TABLET PO PRN (09:34)
--- NOTE | 2024-02-12 09:37 | P.PN ---
Subjective Date of Service: 02/12/24 Chief Complaint: AMS Subjective: No new changes Her daughter at bedside report the patient continued to be delirious, agitated and disoriented, patient found to have urinary retention last night, indwelling Arevalo catheter was placed in about 600 urine drained. Review of Systems is unable to be obtained Physical Examination - Vital Signs Temperature: 98.5 F Blood Pressure: 157/77 Pulse: 106 Respirations: 16 Pulse Ox (%): 98 - Physical Exam Other Physical/Emotional Findings: - Physical Exam. General: Fragile, emaciated, agitated and combative, alert awake, disoriented, Unable to do a physical exam on her - Studies Laboratory Data (last 24 hrs) 02/11/24 02/11/24 02/11/24 20:21 20:21 20:21 WBC 9.10 Hgb 12.2 Hct 36.1 Plt Count 375 PT 12.8 H INR 1.15 APTT 29.8 Sodium 139 Potassium 3.2 L BUN 11 Creatinine 0.73 Glucose 115 H Total Bilirubin 0.6 AST 14 L ALT < 14 Alkaline Phosphatase 52 Assessment And Plan - Plan 88 yrs old Female with past medical history of chronic back pain and restless leg syndrome was brought to the ER with altered mental status. Patient was agitated and restless in the ER and had noted to have UTI and was admitted for further management of acute encephalopathy #1 hyperactive delirium/acute metabolic encephalopathy related to #2 I will order haloperidol 1 mg p.o. as needed as well as IM Chest x-ray on admission personally reviewed, no pneumonia or any other abnormality. CT of the brain unremarkable, normal renal and liver function test. I will obtain influenza, RSV, COVID 19 antigen test, #2 acute cystitis with acute urinary retention No sepsis, UA suspected UTI, urine culture pending, afebrile, no leukocytosis, I will continue ceftriaxone until urine culture comes back DVT prophylaxis; enoxaparin subcu
[2024-02-12] MEDS: ONDANSETRON 4 MG/2 ML VIAL IV PRN (10:16)
[2024-02-12] MEDS: TRAMADOL 37.5mg/APAP 325mg PER TAB PO PRN (13:07)
[2024-02-12] MEDS: GABAPENTIN 400 MG PO SCH (20:01)
[2024-02-12] MEDS: SENNOSIDES 15 MG PO SCH (20:02)
[2024-02-12] MEDS ORDERED: GABAPENTIN 400 MG CAP PO SCH (21:00)
[2024-02-12] MEDS: NA CHLORIDE 0.9% 250 ML ONE (23:30)
[2024-02-12] MEDS: KCL 20 MEQ/100 mL IVPB 20 MEQ/100 ML BAG IV SCH (23:42)
[2024-02-13 00:30] LABS: Specific Gravity 1.021 (1.005-1.030); Sqamous Epithelial <5 /HPF (None Seen); Urine Bacteria <20 /HPF (<20); Urine Bilirubin NEGATIVE (Negative); Urine Blood 1+ (Negative); Urine Clarity Extremely Turbid (Clear); Urine Color Yellow (Yellow); Urine Culture Reflex Order REFLEXED; Urine Glucose NEGATIVE (Negative); Urine Ketones NEGATIVE (Negative); Urine Microscopic Reflex YN ORDER UMIC; Urine Mucus Slight /HPF (None Seen); Urine Nitrite NEGATIVE (Negative); Urine Protein TRACE (Negative); Urine Urobilinogen Normal (Normal); Urine WBC >50 /HPF (<5); Urine WBC Clump Rare /HPF (None Seen); Urine pH 6.5 (5.0-7.0)
[2024-02-13] MEDS ORDERED: DIPHENHYDRAMINE 25 MG TAB/CAP PO PRN (04:27)
[2024-02-13 05:29] LABS: Anion Gap 6.7 mEq/L (5.0-15.0); Potassium 3.7 mEq/L (3.5-5.1)
[2024-02-13] MEDS: NA CHLORIDE 0.9% 100 ML ONE (06:08)
[2024-02-13] MEDS: KCL 20 MEQ/100 mL IVPB 20 MEQ/100 ML BAG IV SCH (06:21)
[2024-02-13] MEDS ORDERED: FLU (Fluarix Triv) TS24-25(6MOS UP)/PF 45 MCG/0.5 ML Syringe IM ONE (07:30)
[2024-02-13] MEDS: SOTALOL HCL 80 MG TAB PO SCH (10:02)
[2024-02-13] MEDS: APIXABAN 5 MG TABLET PO SCH (10:02)
[2024-02-13] MEDS: FLU (Fluarix Triv) TS24-25(6MOS UP)/PF 45 MCG/0.5 ML Syringe IM ONE (12:00)
--- NOTE | 2024-02-13 13:01 | P.PN ---
Subjective Date of Service: 02/13/24 Chief Complaint: AMS Subjective: Improving KATHRINE HAS HAD SMELLY URINE BUT NO OTHER SS UNTIL DAY BEFORE WHEN SHE GOT CONFUSED AND FAMILY BROUGHT HER TO ER. SHE HAD UTI ON URINE BUT ALSO IRREGULAR HEART AND A FIB THAT IS NEW. SHE IS WEAK BUT BETTER TODAY. I SAW HER THIS AM AND FOUND HEART RATE TO BE IN 130S, SUSPECTED A FIB ON AUSCULTATION, ORDERED EKG, SOTALOL AND ELIQUIS. CONSULTED ARCHIVIST ECONOMIC HISTORY AND ORDERED CT ANGIOGRAM STAT. SHE HAS POOR IV ACCESS SO SHE WILL GET A PICC LINE. DAUGHTER AT BEDSIDE EXPLAINED. Review of Systems 10-point ROS is otherwise unremarkable General: Weakness, Malaise Physical Examination - Vital Signs Temperature: 97.8 F Blood Pressure: 143/90 Pulse: 122 Respirations: 16 Pulse Ox (%): 95 - Physical Exam General: Oriented x2, Mild distress, Confused HEENT: Atraumatic, PERRLA, EOMI Neck: Supple, JVD not distended Respiratory: Clear to auscultation bilaterally, Normal air movement Cardiovascular: Irregular heart rate/rhythm Gastrointestinal: Normal bowel sounds, No tenderness Musculoskeletal: No tenderness Integumentary: No rashes Neurological: Normal speech, Normal tone, Normal affect Lymphatics: No axilla or inguinal lymphadenopathy Other Physical/Emotional Findings: - Physical Exam. General: Fragile, emaciated, agitated and combative, alert awake, disoriented, Unable to do a physical exam on her - Studies Medications List Reviewed: Yes Assessment And Plan - Current Problems (Diagnosis) (1) Rapid atrial fibrillation Current Visit: Yes Status: Acute Plan: SOTALOL BID ELIQUIS BID ECHO CONSULT CARDIOLOGY (2) Hypoxia Current Visit: Yes Status: Acute Plan: ACUTE DIASTOLIC HEART FAILURE. LASIX BIX KCL BID CONSULT CARD. (3) Altered mental status Current Visit: Yes Status: Acute Plan: MORE FROM HYPOXIA THAN UTI. SHE DOES NOT HAVE REALLY BAD URINE. (4) UTI (urinary tract infection) Current Visit: Yes Status: Acute Plan: EARLY, MILD AND NOT THE CAUSE OF CONFUSION. (5) Protein calorie malnutrition Current Visit: Yes Status: Acute Plan: SUNSHINE BID ORALLY. PT CONSULT. Qualifiers: Protein-calorie malnutrition severity: moderate Qualified Code(s): E44.0 - Moderate protein-calorie malnutrition (6) Hypokalemia Current Visit: Yes Status: Acute Plan: POT REPLACEMENT. (7) Acute diastolic heart failure Current Visit: Yes Status: Acute Plan: PRESENT ON ADMISSION. A FIB PRESENT ON ADMISSION. ECHO CONT DIURETICS DAILY LAB.
--- NOTE | 2024-02-13 14:20 | P.CNS ---
Date of Consult: 02/13/24 Chief Complaint: AMS History of Present Illness: Patient with no significant cardiac medical history, presented with AMS, UTI, found to be in AF. denies any cardiac complains. Allergies ciprofloxacin Allergy (Verified 05/06/23 15:48) Itching Home medications list reviewed: Yes Home Medications: RX: Gabapentin 2 cap PO BID 05/01/23 RX: Sennosides [Laxative] 3 tab PO BEDTIME 05/01/23 RX: Tramadol HCl/Acetaminophen [Tramadol-Acetaminophn 37.5-325] 2 tab PO BID 05/01/23 Diphenhydramine HCl [Benadryl] 02/13/24 - Past Medical/Surgical History Diabetic: No -: Chronic back pain -: Symptomatic anemia -: Restless leg syndrome -: Hysterectomy - Social History Alcohol use: No CD- Drugs: No Place of Residence: Home Review of Systems 10-point ROS is otherwise unremarkable Physical Examination Temp Pulse Resp BP Pulse Ox 97.8 F 122 H 16 143/90 H 95 02/13/24 13:03 02/13/24 13:03 02/13/24 13:03 02/13/24 13:03 02/13/24 13:03 General: Alert, In no apparent distress HEENT: Atraumatic, PERRLA, Mucous membr. moist/pink, EOMI, Sclerae nonicteric Neck: Supple, 2+ carotid pulse no bruit, No LAD, Without JVD or thyroid abnormality Respiratory: Clear to auscultation bilaterally, Normal air movement Cardiovascular: Irregular heart rate/rhythm Gastrointestinal: Normal bowel sounds, No tenderness Musculoskeletal: No tenderness Integumentary: No rashes Neurological: Normal gait, Normal speech, Normal tone, Normal affect Lymphatics: No axilla or inguinal lymphadenopathy - Problems (1) Atrial fibrillation Current Visit: Yes Status: Acute Plan: Sotalolol 80 mg po BID (EKG after 3rd dose) place patient on telemetery [place] Eliquis to 2.5 mg po BID
[2024-02-13] MEDS: FUROSEMIDE 20 MG/ 2ML VIAL IV SCH (17:00)
[2024-02-13] MEDS: POTASSIUM CL SA 10 MEQ TAB PO SCH (20:35)
[2024-02-13] MEDS ORDERED: Mupirocin NASAL 2 APPL/1 GM TUBE NAS SCH (21:00)
[2024-02-13] MEDS ORDERED: POTASSIUM CL SA 10 MEQ TAB PO SCH (21:00)
[2024-02-13] MEDS: FUROSEMIDE 40 MG TABLET PO ONE (21:46)
[2024-02-13] MEDS: CEFTRIAXONE 1,000 MG in NA CHLORIDE 0.9% 50 ML IVPB SCH (23:34)
--- NOTE | 2024-02-14 00:36 | RAD REPORT ---
EXAM: CT Angiography Chest With Intravenous Contrast CLINICAL HISTORY: The patient is 88 years old and is Female; HYPOXIA TECHNIQUE: Axial computed tomographic angiography images of the chest with intravenous contrast. Sagittal an d coronal reformatted images were created and reviewed. This CT exam was performed using one or more of the following dose reduction techniques: automated exposure control, adjustment of the mA a nd/or kV according to patient size, and/or use of iterative reconstruction technique. MIP reconstructed images were created and reviewed. COMPARISON: No relevant prior studies available. FINDINGS: ARTIFACTS: The exam is suboptimal secondary to motion artifact. PULMONARY ARTERIES: The main pulmonary arteries and proximal segmental branches opacify normally and are without filling defect. AORTA: No acute findings. No thoracic aortic aneurysm. LUNGS: Scarring within the right lung apex is noted. Atelectasis in the lower lobes and right mid dle lobe is noted. Calcified granuloma within the right middle lobe is present. The lungs are otherwise well-inflated and clear. No mass. PLEURAL SPACE: Unremarkable. No significant effusion. No pneumothorax. HEART: Unremarkable. No cardiomegaly. No significant pericardial effusion. No evidence of R V dysfunction. MEDIASTINUM: A moderate-sized hiatal hernia is present. BONES/JOINTS: Chronic compression deformity of the superior endplates of T12-L2 is noted. There i s no acute fracture. No dislocation. SOFT TISSUES: Unremarkable. LYMPH NODES: Unremarkable. No enlarged lymph nodes. KIDNEYS AND URETERS: Multiple right renal cysts are partially visualized. No follow-up imaging is recommended. IMPRESSION: 1. The main pulmonary arteries and proximal segmental branches opacify normally and are without shawn ling defect. The remainder of the pulmonary vessels are inadequately evaluated secondary to motion artifact. 2. Moderate-sized hiatal hernia. Electronically signed by: Eneida Sánchez MD 02/14/2024 12:33 AM [facility] Due to temporary technical issues with the PACS/[employer] reporting system, reports are being jeremi d by the in-house radiologist without review as a courtesy to ensure prompt reporting the interpreting radiologist is fully responsible for the content of the report. Transcribed Date/Time: 02/14/2024 12:36 AM
[2024-02-14 06:07] LABS: Absolute Basophils 0.1 K/uL (0-0.5); Absolute Eosinophils 0.4 K/uL (0-0.5); Absolute Lymphocytes (CBC) 2.9 K/uL (0.7-4.9); Absolute Monocytes 0.8 K/uL (0.1-1.3); Absolute Neutrophil 2.6 K/uL (1.8-8.0); Basophils % 1.1 % (0-1.3); Eosinophils % 6.6 % (0-4.4); Hematocrit 33.5 % (36.0-45.0); Hemoglobin 11.4 g/dL (12.0-15.0); Lymphocytes % 42.5 % (15.3-44.8); MCH 33.3 pg (27.0-35.0); MCHC 34.1 g/dL (32.0-36.0); MCV 97.6 fL (80-100); MPV 7.4 fL (7.6-11.3); Monocytes % 11.4 % (3.3-12.3); Neutrophils % 38.4 % (41.7-73.7); Nucleated Red Blood Cells % 0.2 % (0-0); Platelets 378 thou/uL (152-406); RBC Red Blood Cell Count 3.43 M/uL (3.86-4.86); Red Cell Distribution Width 13.4 % (12.1-15.2)
[2024-02-14 06:14] LABS: Anion Gap 8.8 mEq/L (5.0-15.0); Magnesium 1.8 mg/dL (1.6-2.4); Potassium 3.8 mEq/L (3.5-5.1)
[2024-02-14] MEDS: Mupirocin NASAL 2 APPL/1 GM TUBE NAS SCH (09:33)
--- NOTE | 2024-02-14 10:04 | P.PN ---
Subjective Date of Service: 02/14/24 Chief Complaint: AMS Subjective: No new changes, No C/O voiced, Tolerating diet, Ambulating, Improving Review of Systems 10-point ROS is otherwise unremarkable Physical Examination - Vital Signs Temperature: 97.6 F Blood Pressure: 121/54 Pulse: 78 Respirations: 18 Pulse Ox (%): 95 - Physical Exam General: Alert, In no apparent distress HEENT: Atraumatic, PERRLA, EOMI Neck: Supple, JVD not distended Respiratory: Clear to auscultation bilaterally, Normal air movement Cardiovascular: Regular rate/rhythm, Normal S1 S2 Gastrointestinal: Normal bowel sounds, No tenderness Musculoskeletal: No tenderness Integumentary: No rashes Neurological: Normal speech, Normal tone, Normal affect Lymphatics: No axilla or inguinal lymphadenopathy Other Physical/Emotional Findings: - Physical Exam. General: Fragile, emaciated, agitated and combative, alert awake, disoriented, Unable to do a physical exam on her - Studies Microbiology Data (last 24 hrs): 02/11/24 22:15 Catheterized Urine Watson Count - Final >100,000 CFU/ML. 02/11/24 22:15 Catheterized Urine - Final Escherichia Coli Medications List Reviewed: Yes Assessment And Plan - Current Problems (Diagnosis) (1) Atrial fibrillation Current Visit: Yes Status: Acute Plan: Patient is in sinus rhythm now Sotalolol 80 mg po BID (EKG after 3rd dose) Eliquis to 2.5 mg po BID
--- NOTE | 2024-02-14 15:14 | ECHO ---
HEIGHT: 4 ft 8 in WEIGHT: 149 lb 9.6 oz DATE OF STUDY: 02/14/[address]: Simon Gutierrez MD 2-DIMENSIONAL: YES M.MODE: YES DOPPLER: YES COLOR FLOW: YES TDS: NO PORTABLE: YES DEFINITY: NO BUBBLE STUDY: NO DIAGNOSIS: HYPOXIA CARDIAC HISTORY: CATHERIZATION: SURGERY: PROSTHETIC VALVE: PACEMAKER: MEASUREMENTS (cm) DIASTOLIC (NORMALS) SYSTOLIC (NORMALS) IVSd 0.9 (0.6-1.2) LA Diam 2.8 (1.9-4.0) LVEF 60-65% LVIDd 3.9 (3.5-5.7) LVIDs 2.6 (2.0-3.5) %FS 32% LVPWd 1.0 (0.6-1.2) Ao Diam 2.4 (2.0-3.7) 2 DIMENSIONAL ASSESSMENT: RIGHT ATRIUM: NORMAL LEFT ATRIUM: MILDLY DILATED RIGHT VENTRICLE: NORMAL LEFT VENTRICLE: NORMAL TRICUSPID VALVE: MILD TRICUSPID REGURGITATION MITRAL VALVE: NORMAL PULMONIC VALVE: NORMAL AORTIC VALVE: NORMAL PERICARDIAL EFFUSION: NONE AORTIC ROOT: NORMAL LEFT VENTRICULAR WALL MOTION: NORMAL. DOPPLER/COLOR FLOW: NORMAL. COMMENTS: 1. NORMAL LEFT VENTRICULAR SYSTOLIC FUNCTION. LEFT VENTRICULAR EJECTION FRACTION 60-65%. NORMAL WALL MOTION. 2. NORMAL DIASTOLIC FUNCTION. 3. MILD TRICUSPID REGURGITATION. TECHNOLOGIST: ABDOULAYE MARINELLI
[2024-02-14 15:46] VITALS: O2SAT 96
[2024-02-14 17:55] VITALS: BP 122/66; TEMP 96.8
[2024-02-14] MEDS ORDERED: APIXABAN 2.5 MG TABLET PO SCH (21:00)
--- NOTE | 2024-02-14 21:57 | P.DS ---
Admission Date: 02/11/24 Discharge Date: 02/14/24 Disposition: ROUTINE DISCHARGE Discharge Condition: FAIR Reason for Admission: AMS - Problems (1) Rapid atrial fibrillation Status: Acute (2) Hypoxia Status: Acute (3) Altered mental status Status: Acute (4) UTI (urinary tract infection) Status: Acute (5) Protein calorie malnutrition Status: Acute Qualifiers: Protein-calorie malnutrition severity: moderate Qualified Code(s): E44.0 - Moderate protein-calorie malnutrition (6) Hypokalemia Status: Acute (7) Acute diastolic heart failure Status: Acute Hospital Course: KATHRINE HAD RAPID A FIB LEADING TO CHF AND HYPOXIA. UTI IS NOT A MAJOR ISSUE HERE. HER CONFUSION WAS FROM CHF AND HYPOXIA. ONCE WE CORRECTED A FIB, THAT CORRECTED CHF AND PER DAUGHTER SHE FELT GREAT YESTERDAY AFTERNOON. SHE IS VERY EAGER TO GO HOME AND FEELS GREAT TODAY. I SENT HER SOTALOL, ELIQUIS AND ANTIBIOTICS TO HER PHARMACY. I WILL SEE HER IN OFFICE IN A WEEK. Vital Signs/Physical Exam: Temp Pulse Resp BP Pulse Ox 96.8 F 71 17 122/66 94 02/14/24 16:00 02/14/24 16:00 02/14/24 16:00 02/14/24 16:00 02/14/24 16:00 Other Physical/Emotional Findings: - Physical Exam. General: Fragile, emaciated, agitated and combative, alert awake, disoriented, Unable to do a physical exam on her Laboratory Data at Discharge: WBC 6.70 thou/uL (4.3-10.9) 02/14/24 05:28 Hgb 11.4 g/dL (12.0-15.0) L 02/14/24 05:28 Hct 33.5 % (36.0-45.0) L 02/14/24 05:28 Plt Count 378 thou/uL (152-406) 02/14/24 05:28 PT 12.8 SECONDS (9.4-12.5) H 02/11/24 20:21 INR 1.15 02/11/24 20:21 APTT 29.8 SECONDS (24.3-36.9) 02/11/24 20:21 Sodium 136 mEq/L (136-145) D 02/14/24 05:28 Potassium 3.8 mEq/L (3.5-5.1) 02/14/24 05:28 BUN 17 mg/dL (7-18) 02/14/24 05:28 Creatinine 0.81 mg/dL (0.55-1.02) 02/14/24 05:28 Glucose 97 mg/dL (74-106) 02/14/24 05:28 Phosphorus 2.5 mg/dL (2.5-4.9) 02/12/24 04:13 Magnesium 1.8 mg/dL (1.6-2.4) 02/14/24 05:28 Total Bilirubin 0.5 mg/dL (0.2-1.0) 02/12/24 04:13 AST 11 U/L (15-37) L 02/12/24 04:13 ALT < 14 U/L (13-56) 02/12/24 04:13 Alkaline Phosphatase 49 U/L (45-117) 02/12/24 04:13 Home Medications: Gabapentin 2 cap PO BID 05/01/23 Tramadol HCl/Acetaminophen [Tramadol-Acetaminophn 37.5-325] 2 tab PO BID 05/01/23 Diphenhydramine HCl [Benadryl] 02/13/24 Apixaban [Eliquis] 2.5 mg PO BID #60 tablet 02/14/24 Cefuroxime [Ceftin*] 250 mg PO BID #14 tab 02/14/24 Sotalol HCl [Betapace*] 80 mg PO BID 6AM 6PM #60 tab 02/14/24 New Medications: Sotalol HCl [Betapace*] 80 mg PO BID 6AM 6PM #60 tab Cefuroxime [Ceftin*] 250 mg PO BID #14 tab Apixaban [Eliquis] 2.5 mg PO BID #60 tablet Followup: Simon Gutierrez MD [Primary Care Provider] - 1-2 Weeks
--- NOTE | 2024-02-17 16:03 | EKG ---
Test Date: 2024-02-13 Test Time: 08:10:08 Certified Pharmacy Technician: GILBERT MEASUREMENT RESULTS: Intervals: Rate: 110 [place]: 156 QRSD: 70 QT: 322 QTc: 435 [place]: P: 50 [place]: 156 QRS: 76 T: 42 INTERPRETIVE STATEMENTS: Sinus tachycardia with premature supraventricular complexes Septal infarct, age undetermined Abnormal ECG Compared to ECG 05/01/2023 03:52:31 Atrial premature complex(es) now present Myocardial infarct finding now present Sinus rhythm no longer present Electronically Signed On 02-17-24 15:54:37 ENGRAVER [employer] by Santos Rodriguez
--- NOTE | 2024-02-17 16:11 | EKG ---
Test Date: 2024-02-11 Test Time: 22:00:21 Seat Joiner: SETH MEASUREMENT RESULTS: Intervals: Rate: 93 [place]: 168 QRSD: 74 QT: 354 QTc: 440 [place]: P: 44 [place]: 168 QRS: 60 T: 60 INTERPRETIVE STATEMENTS: Normal sinus rhythm Normal ECG Compared to ECG 05/01/2023 03:52:31 No significant changes Electronically Signed On 02-17-24 15:59:30 BUSINESS DEVELOPMENT REPRESENTATIVE by Santos Rodriguez
== END 2024-02-14 18:16 | disposition home or self-care (01) | DRG 291 ==
LOC: ER 19:55 → ERHOLD 23:23 → 2ND 02-12 00:19
PROVIDERS: ADMIT Family Medicine; ATTEND Internal Medicine
PROC: 02HV33Z Insertion of Infusion Device into Superior Vena Cava, Percutaneous Approach (ICD-10-PCS; principal; 2024-02-11)
PROC: 0T9B70Z Drainage of Bladder with Drainage Device, Via Natural or Artificial Opening (ICD-10-PCS; 2024-02-11)
DX: I50.31 Acute diastolic (congestive) heart failure (principal); G93.41 Metabolic encephalopathy; N30.00 Acute cystitis without hematuria; E44.0 Moderate protein-calorie malnutrition; E87.6 Hypokalemia; I48.91 Unspecified atrial fibrillation; G89.29 Other chronic pain; M54.9 Dorsalgia, unspecified; G25.81 Restless legs syndrome; R33.9 Retention of urine, unspecified; Z88.1 Allergy status to other antibiotic agents; Z91.81 History of falling; Z11.52 Encounter for screening for COVID-19; Z96.651 Presence of right artificial knee joint; Z90.710 Acquired absence of both cervix and uterus; Z79.899 Other long term (current) drug therapy; Z68.33 Body mass index [BMI] 33.0-33.9, adult
CPT/HCPCS: 36415; 51702; 70450; 71045; 71275; 80048; 80053; 81001; 83605; 83735; 84100; 85025; 85610; 85730; 87040; 87077; 87086; 87088; 87186; 87804; 87807; 87811; 93005; 93306; 94760; 96365; 96367; 96368; 96375; 97116; 97161; 97530; 99285; J0696; J1650; J1940; J2405; J3360; J3475; J3480; J7050; Q9967

== ENCOUNTER 2024-07-07 15:39 | Inpatient (IN) | payer OTHER, BC ==
--- OUTSIDE RECORDS SUMMARY | 2024-07-07 15:42 | XMS REPORT | Continuity of Care Document ---
Author Name Unknown Address [address] [place] [address] [facility] Address 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 Name Role Phone JACKY PELAYO MD Primary Care Physician Genevieve Celestin MD Attending Clinician [phone] LEXUS CHOWDARY Attending Clinician KELSIE Wiggins Attending Clinician Unavailable KELSIE COLLINS Attending Clinician Unav ailable CAROL SCHULZ Attending Clinician Un available NICHOLAS OVIEDO Attending Clinician Unavailable JACKY PELAYO Attending Clinician Unavailable ARINA CABRALES Admitting Clinician Unavail able CAROL SCHULZ Admitting Clinician Un available NICHOLAS OVIEDO Admitting Clinician Unavailable Payers Payer Name Policy Type Policy Number Effective Date Expirati on Date Source MEDICARE PART A AND B [id number] 2002 00:00:00 [employer] [id number] 2015 00:00:00 [facility] Medicare A & B [id number] 2002 00:00:00 [facility] Problems Condition Name Condition Details Condition Category Status Onset Date Resolution Date Last Treatment Date Treating Clinician Comments Source Strain of gastrocnem ius muscle of left lower extremity Strain of gastrocnem ius muscle of left lower extremity Disease Active 2023-03 00:00: 00 [facility] Acute pain of left knee Acute pain of left knee Disease Active 2023-03 00:00: 00 [facility] Closed fracture of both calcanei Closed fracture of both calcanei Disease Active 2021-03 00:00: 00 [facility] Allergies, Adverse Reactions, Alerts Allergy Name Allergy Type Status Severity Reaction(s) Onset Date Inactive Date Treating Clinician Comments Source Ciproflo xacin Hcl Propensi ty to adverse reaction s Active 16 00:00: 00 Other Reaction( s): Unknown - See comments [facility] Social History Social Habit Start Date Stop Date Quantity Comments Source ASSERTION Possible [facility] Sexual orientation [facility] Alcoholic beverage intake 2024-02-16 00:00:00 2024-02-16 00:00:00 Ex-drinker (finding) [facility] History of Social function 2024-02-16 00:00:00 2024-02-16 00:00:00 [facility] Exposure to SARS-CoV-2 (event) 2022-04-10 00:00:00 2022-04-20 10:35:00 Not sure [facility] Alcohol intake 2022-04-20 00:00:00 2022-04-20 00:00:00 Ex-drinker (finding) [facility] Tobacco use and exposure 2022-02-05 00:00:00 2022-02-05 00:00:00 Smokeless tobacco non-user [facility] Sex 2022-01-25 17:39:55 2022-01-25 17:39:55 Female (finding) [facility] Sex assigned at 1935 00:00:00 1935 00:00:00 [facility] Smoking Status Start Date Stop Date Source Never smoked tobacco [facility] Medications Ordered Medication Name Filled Medication Name Start Date Stop Date Current Medication? Ordering Clinician Indication Dosage Frequency Signature (SIG) Comments Components Source sotalol (Betapace) 80 MG tablet 2023-03 15:20: 18 Yes 80mg Q.5D Take 80 mg by mouth in the morning and 80 mg before bedtime. [facility] apixaban (Eliquis) 2.5 MG tablet 2023-03 00:00: 00 Yes 2.5mg Take 2.5 mg by mouth. [facility] cefuroxime (Ceftin) 250 MG tablet 2023-03 00:00: 00 Yes 250mg Take 250 mg by mouth. [facility] traMADol (Ultram) 50 MG tablet 2021-03 00:00: 00 Yes [id number] 50mg Q6H Take 1 tablet (50 mg total) by mouth every 6 (six) hours if needed for moderate pain. [facility] omeprazole (PriLOSEC) [address] capsule 2021-03 14:26: 16 Yes 1 (one) time each day if needed. [facility] gabapentin (Neurontin) 300 MG capsule 2021-03 14:26: 16 Yes Three Times A Day [facility] gabapentin (Neurontin) 400 MG capsule 2021-03 0-31 00:00: 00 Yes 800mg [id number] 3D Take 800 mg by mouth in the morning and 800 mg at noon and 800 mg in the evening. [facility] Ciprofloxac in Hcl (Cipro) 500 Mg Tablet Ciprofloxac in Hcl (Cipro) 500 Mg Tablet 2018- 8-13 00:00: 00 Yes Juwan Stone 500 Every 12 Hours [facility] Acetaminoph en 325 Mg Tablet Acetaminoph en 325 Mg Tablet Yes 325 Every 6 Hours as needed for Pain [facility] Alendronate Sodium 70 Mg Tablet Alendronate Sodium 70 Mg Tablet Yes 7 Weekly [facility] Ascorbic Acid (Vitamin C) 500 Mg Capsule.er Ascorbic Acid (Vitamin C) 500 Mg Capsule.er Yes Daily [facility] Cholecalcif maría (Vitamin D3) (Vitamin D) 400 Unit Capsule Cholecalcif maría (Vitamin D3) (Vitamin D) 400 Unit Capsule Yes 400 Daily [facility] Cyanocobala min (Vitamin B-12) 1,000 Mcg Tab Cyanocobala min (Vitamin B-12) 1,000 Mcg Tab Yes Monthly [facility] Gabapentin 400 Mg Capsule Gabapentin 400 Mg Capsule Yes 2 Three Times A Day [facility] Meloxicam 7.5 Mg Tablet Meloxicam 7.5 Mg Tablet Yes 7.5 Daily [facility] Omeprazole 40 Mg Capsule. Omeprazole 40 Mg Capsule. Yes 40 Daily [facility] Pramipexole Di-Hcl (Pramipexol e Dihydrochlo ride) 0.25 Mg Tablet Pramipexole Di-Hcl (Pramipexol e Dihydrochlo ride) 0.25 Mg Tablet Yes .25 Three Times A Day [facility] Tylenol Pm Tylenol Pm Yes 1 Bedtime [facility] Vital Signs Vital Name Observation Time Observation Value Comments S ource Body height 2024-02-16 21:17:00 147.3 cm [facility] Body weight 2024-02-16 21:17:00 63.504 kg [facility] ealt BMI 2024-02-16 21:17:00 29.26 kg/m2 [facility] ealt Procedures Procedure Date / Time Performed Performing Clinicia n Source SPLINT APPLICATION 2022-02-05 20:15:00 Darius Becker [facility] Total replacement of knee joint 2018-10-16 00:00:00 NICHOLAS OVIEDO [facility] Encounters Start Date/Time End Date/Time Encounter Type Admission Type Attending Clinicians Care Facility Care Department Encounter ID Source 2022-03-17 10:55:54 Outpatient [facility] [id number] [facility] 2022-02-05 13:34:57 Outpatient [facility] [id number] [facility] 2022-02-01 10:22:46 Outpatient [facility] [id number] [facility] 2022-01-26 13:02:56 Outpatient [facility] [id number] [facility] 2024-02-16 15:35:00 2024-02-16 16:07:45 Outpatient [facility] [id number] [facility] 2024-02-16 15:15:00 2024-02-16 16:07:30 Office Visit Genevieve Celestin [place] [facility] - [facility] [id number] [facility] 2024-02-16 15:05:00 2024-02-16 15:05:00 Outpatient [facility] [id number] [facility] 2022-05-13 05:15:00 2022-05-14 13:45:00 Outpatient LEXUS CHOWDARY [facility] MED [id number] [facility] 2022-05-12 10:45:00 2022-05-12 10:45:00 Outpatient [facility] [id number] [facility] 2022-05-12 10:45:00 2022-05-12 10:45:00 Outpatient KELSIE COLLINS [facility] [id number] [facility] 2022-05-10 00:00:00 2022-05-10 00:00:00 Outpatient [facility] [id number] [facility] 2022-04-20 10:45:00 2022-04-20 12:49:08 Outpatient [facility] [id number] [facility] 2022-04-20 10:45:00 2022-04-20 12:48:56 Office Visit KELSIE COLLINS [place] [id number] [facility] 2022-04-12 13:45:00 2022-04-12 13:45:00 Outpatient KELSIE COLLINS [facility] [id number] [facility] 2022-04-12 13:45:00 2022-04-12 13:45:00 Outpatient [facility] [id number] [facility] 2022-03-22 00:00:00 2022-03-22 16:39:02 Outpatient [facility] [id number] [facility] 2022-03-22 13:45:00 2022-03-22 14:45:49 Office Visit Kelsie Collins [facility] 1 [id number] [facility] 2022-02-22 00:00:00 2022-02-22 16:44:02 Outpatient [facility] [id number] [facility] 2022-02-22 14:45:00 2022-02-22 16:43:46 Office Visit Kelsie Collins [facility] 1 [id number] [facility] 2022-02-09 12:28:00 2022-02-09 22:25:00 Outpatient KELSIE COLLINS [facility] [id number] [facility] 2022-02-09 17:00:00 2022-02-09 17:00:00 Outpatient KELSIE COLLINS [facility] [id number] [facility] 2022-02-05 14:15:00 2022-02-05 17:06:01 Office Visit Kelsie Collins [facility] 1 [id number] [facility] 2022-01-26 15:42:00 2022-01-28 12:49:00 Inpatient E CAROL SCHULZ [facility] [id number] [facility] 2018-10-16 10:13:00 2018-10-16 10:13:00 Admitted Inpatient (obs) 3 NICHOLAS OVIEDO [facility] [id number] [facility] 2018-06-11 14:38:00 2018-06-11 14:38:00 Outpatient E [id number] [facility] Results Test Description Test Time Test Comments Results Result Co mments Source [facility] 05:50:00* Test Item Value Reference Range Interpretation Comme nts Hematocrit (test code = 4544-3) 26.8 34.2-44.1 L [facility]-2 [id number] 11:43:[address] [place] [address] Patient Name: KATHRINE ESTRADA MR #: [id number] : 1935 Age/Sex: 83/F Req #: [id number] Adm Physician: NICHOLAS OVIEDO MD Ordered by: NICOHLAS OVIEDO MD Report #: [id number] Location: PACU V Room/Bed: PACU-3 Procedure: [id number] DX/KNEE RIGHT 1-2 VIEWS Exam Date: 10/16/18 Exam Time: 1110 REPORT STATUS: Signed EXAMINATION: KNEE RIGHT 1-2 VIEWS INDICATION: Postoperative COMPARISON: None FINDINGS: AP and lateral views of the right knee demonstrate anatomic alignment status post right total knee replacement. No unexpected acute fracture. Subcutaneous emphysema and surgical skin kaya in place. Small joint effusion. IMPRESSION: Anatomic alignment status post right total knee replacement. Signed by: Nicole Wheeler MD on 10/16/2018 11:43 AM Dictated By: NICOLE WHEELER MD 1143 Transcribed By: LOUISA on 10/16/18 1143 COP[facility] TO: [facility] [id number] 13:05:00[address] [place] [address] Patient Name: KATHRINE ESTRADA MR #: [id number] : 1935 Age/Sex: 83/F Req #: [id number] Adm Physician: Ordered by: JACKY PELAYO MD Report #: [id number] Location: RAD Room/Bed: Procedure: [id number] DX/CHEST 2 VIEWS Exam Date: 10/11/18 Exam Time: 1150 REPORT STATUS: Signed EXAMINATION: CHEST 2 VIEWS INDICATION: Pre-operative COMPARISON: Chest radiograph of 05/30/2018 FINDINGS: LINES/TUBES:None LUNGS:The lungs are hyperinflated. Mild bilateral upper lobe predominant emphysema. No focal consolidation or pulmonary edema. Right lower lobe calcified granuloma. PLEURA:No pleural effusion or pneumothorax. MEDIASTINUM:The cardiomediastinal silhouette appears normal in sizeand shape. Atherosclerotic calcifications of the thoracic aorta. BONES/SOFT TISSUES:Compression fractures of 3 contiguous vertebral bodies, likely T12, L1 and L2. ABDOMEN:No free air under the diaphragm. IMPRESSION: Hyperinflated lungs. No focal pneumonia or pulmonary edema. Age-indeterminate compression fractures likely at T12, L1 and L2. Signed by: Nicole Wheeler MD on 10/11/2018 1:09 PM Dictated By: NICOLE WHEELER MD 1303 Transcribed By: LOUISA on 10/11/18 1309 COPY TO: JACKY PELAYO MD CHEST 2 [id number] 13:59:[address] [place] [address] Patient Name: KATHRINE ESTRADA MR #: [id number] : 1935 Age/Sex: 82/F Req #: [id number] Adm Physician: Ordered by: JACKY PELAYO MD Report #: [id number] Location: RAD Room/Bed: Procedure: [id number] DX/CHEST 2 VIEWS Exam Date: Exam Time: REPORT STATUS: Signed EXAMINATION:PA and lateral views of the chest. COMPARISON: None CLINICAL HISTORY: Bronchitis DISCUSSION: Lines/tubes: None. Lungs: The lungs are well inflated and clear. No pneumonia or pulmonary edema. Pleura:No pleural effusion or pneumothorax. Heart and mediastinum: The cardiomediastinal silhouette is normal. Bones and soft tissues: No acute bony abnormalities. Remote compression fractures of the mid thoracic spine. IMPRESSION: No acute cardiopulmonary abnormalities. Signed by: Dr. Genevieve Valiente M.D. on 05/30/2018 2:00 PM Dictated By: GENEVIEVE VALIENTE MD 1400 Transcribed By: LOUISA on 05/30/18 1400 COPY TO: JACKY PELAYO MD Notes Date/Time Note Provider Source 2024-02-16 15:35:51 Associated Problem(s): Strain of gastrocnemius muscle of left lower extremity The following studies were reviewed and discussed during today's visit: Radiographs. MRI has been ordered and we shall follow up after completion and read by the radiologist to discuss a further plan of care and treatment options. Ultrasound, has been ordered and we shall follow up after completion to discuss a further plan of care and treatment options. Consider using an over the counter topical medication such as Salonpas/Icy Hot/BioFreeze. Patient verbalized understanding and agrees with plan of care. [facility]
[2024-07-07 17:13] LABS: PT Prothrombin Time 12.9 SECONDS (10-13.0); Protime INR 1.14
[2024-07-07 17:17] LABS: Absolute Eosinophils 0.1 K/uL (0-0.5); Absolute Lymphocytes (CBC) 1.9 K/uL (0.7-4.9); Absolute Monocytes 0.7 K/uL (0.1-1.3); Absolute Neutrophil 8.3 K/uL (1.8-8.0); Basophils % 0.4 % (0-1.3); Eosinophils % 0.6 % (0-4.4); Hematocrit 38.8 % (36.0-45.0); Hemoglobin 13.1 g/dL (12.0-15.0); Lymphocytes % 17.2 % (15.3-44.8); MCH 31.2 pg (27.0-35.0); MCHC 33.8 g/dL (32.0-36.0); MCV 92.2 fL (80-100); MPV 7.6 fL (7.6-11.3); Neutrophils % 75.8 % (41.7-73.7); Nucleated Red Blood Cells % 0.1 % (0-0); Platelets 286 thou/uL (152-406); RBC Red Blood Cell Count 4.21 M/uL (3.86-4.86); Red Cell Distribution Width 13.1 % (12.1-15.2)
[2024-07-07] MEDS ORDERED: IPRATROPIUM BROM 0.5MG/2.5ML ONE (17:30)
[2024-07-07] MEDS ORDERED: ALBUTEROL 2.5 MG/3 ML NEB SOL ONE (17:30)
[2024-07-07 17:34] LABS: Anion Gap 11.6 mEq/L (5.0-15.0); Magnesium 1.9 mg/dL (1.6-2.4); Potassium 3.6 mEq/L (3.5-5.1); Troponin High Sensitivity 4.7 pg/mL (<58.9)
--- NOTE | 2024-07-07 18:16 | RAD REPORT ---
EXAMINATION: ONE VIEW CHEST XR CLINICAL INDICATION: Female, 88 years old.,DYSPNEA TECHNIQUE: Frontal chest projection is submitted. Examination is limited by patient positioning and t echnique. COMPARISON: 02/11/2024 FINDINGS: The lungs again show mild to moderate diffuse emphysematous but grossly clear of focal opacities. Mor e pronounced interstitial thickening infrahilar regions, could relate to COPD exacerbation. No pneumothorax or sizable effusion. The heart is normal in size. Mediastinal contours are unremarkable. IMPRESSION: Findings suggesting COPD exacerbation. No evidence of focal pneumonia.
[2024-07-07] MEDS ORDERED: METHYLPREDNISOLONE 125 MG INJ ONE (18:42)
--- NOTE | 2024-07-07 18:45 | RAD REPORT ---
EXAMINATION: US Extrem Venous W Compress Chris CLINICAL INDICATION: [facility] MAIN SWELLING TECHNIQUE: Complete bilateral duplex sonography of the BILATERAL lower extremity veins was performed. The examination included compression for vein patency, color Doppler imaging and flow augmentation in response to distal compression of the distal external iliac, common femoral, femoral, popliteal, t ibial, and great and small saphenous veins. COMPARISON: No prior exam. FINDINGS: Duplex sonography testing of the veins of the BILATERAL lower extremity was performed. Color flow sarkis ging shows all veins to be compressible with [id number] color filling. Pulsatile and phasic flow is present within all lower extremity deep and superficial veins examined. IMPRESSION: There is no deep vein or superficial vein thrombosis.
[2024-07-07 19:08] LABS: Specific Gravity 1.017 (1.005-1.030); Urine Bacteria <20 /HPF (<20); Urine Bilirubin 1+ (Negative); Urine Blood 3+ (Negative); Urine Clarity Extremely Turbid (Clear); Urine Color Dark-Yellow (Yellow); Urine Crystals Unidentified Few /HPF (None Seen); Urine Culture Reflex Order REFLEXED; Urine Glucose NEGATIVE (Negative); Urine Ketones NEGATIVE (Negative); Urine Microscopic Reflex YN ORDER UMIC; Urine Nitrite 1+ (Negative); Urine Protein 3+ (Negative); Urine RBC >50 /HPF (None Seen); Urine Urobilinogen 2+ (Normal)
--- NOTE | 2024-07-07 19:21 | RAD REPORT ---
EXAM: CT Chest For Pe Angio TECHNIQUE: CT angiogram of the chest was performed following intravenous contrast administration, inc luding sagittal and coronal as well as maximum intensity projection reformats. One or more of the following dose reduction techniques were used: Automated exposure control, adjustment of the mA and k V according to patient size, and iterative reconstruction. Unless otherwise specified, incidental findings do not require dedicated imaging follow-up. INDICATION: SOB COMPARISON: 02/13/2024 CT chest 07/07/2024 chest radiograph. FINDINGS: LINES/TUBES: None. PULMONARY ARTERIES: Main pulmonary arteries are normal in caliber. No filling defects within the pul monary arteries to suggest pulmonary embolus. LUNGS AND AIRWAYS: The lungs show scattered predominantly peripheral tree-in-bud and small nodular gr oundglass opacities more so in the right upper lung. Bilateral basal predominant platelike atelectasis. Background mild centrilobular emphysematous changes. PLEURA: No effusion or pneumothorax. HEART AND MEDIASTINUM: The visualized thyroid gland is normal. No mediastinal, hilar, or axillary lym phadenopathy. Aorta is normal in caliber with moderate tortuosity. Moderate-sized sliding hiatal hernia with fluid distention. Heart is unremarkable. No pericardial effusion. SOFT TISSUES AND BONES: No acute osseous abnormality. T12 chronic anterior wedge compression fracture , stable. No significant soft tissue finding. UPPER ABDOMEN: No renal cortical cysts, larger on the right, stable.. IMPRESSION: No evidence of acute central pulmonary emboli. Scattered predominantly peripheral tree-in-bud and small nodular groundglass opacities, concerning fo r an infectious inflammatory process such as bronchiolitis or pneumonitis.
--- NOTE | 2024-07-07 19:39 | EDPHYS ---
Physician Documentation [facility] Name: Juliann Shelton Age: 88 yrs Sex: Female : 1935 Arrival Date: 07/07/2024 Time: 15:39 Bed 2 Private MD: ED Physician Cameron Robb HPI: 07/07 17:02 This 88 yrs old Female presents to ER via Wheelchair with complaints of Low O2. kb 17:02 Pt is an 88 year old female who presents for low oxygen level and uti. Pt went to urgent care today for malodorous urine, urinary frequency and dysuria that started a few days ago. States they did a chest xray due to low oxygen levels and were told to come to the ER for evaluation for possible fluid in the lungs. Daughter states pt's oxygen has been in the 80s for the past 2 weeks, but pt didn't want to come to the ER. Pt reports intermittent shortness of breath. . Historical: - Allergies: 16:13 Ciprofloxacin; cm10 - PMHx: 16:13 chronic back pain; restless leg; Atrial fibrillation; cm10 - PSHx: 16:13 bilateral ankle; bilateral feet; Right knee replacement; Total abdominal hysterectomy; cm10 - Immunization history:: Adult Immunizations up to date. - Infectious Disease History:: Denies. - Social history:: Smoking status: unknown. ROS: 17:00 Constitutional: As per HPI kb Exam: 16:59 Constitutional: This is a well developed, well nourished patient who is awake, alert, kb and in no acute distress. Head/Face: Normocephalic, atraumatic. ENT: Moist Mucous membranes Cardiovascular: Regular rate Respiratory: Respirations even and unlabored. No increased work of breathing. Talking in full sentences Abdomen/GI: Soft, non-tender. No distention Skin: Warm, dry with normal turgor. Normal color. MS/ Extremity: Pulses equal, no cyanosis. Neurovascular intact. Full, normal range of motion. Neuro: Awake and alert, GCS 15, oriented to person, place, time, and situation. 16:59 ECG was reviewed by the Attending Physician. Vital Signs: 16:10 BP 132 / 76; Pulse 88; Resp 18; Temp 97.7(O); Pulse Ox 87% on R/A; Weight 60.33 kg; cm10 Height 4 ft. 10 in. ; Pain 0/10; 17:22 BP 147 / 68; Pulse 81; Resp 18; Pulse Ox 95% on 2 lpm NC; mb9 19:01 Pulse 79; Resp 18; Pulse Ox 93% on 2 lpm NC; mb9 20:35 BP 152 / 76; Pulse 83; Resp 22; Pulse Ox 94% ; vc1 21:30 BP 147 / 74; Pulse 81; Resp 17 S; Pulse Ox 95% on 2 lpm NC; ha1 22:20 BP 144 / 78; Pulse 82; Resp 18 S; Pulse Ox 96% on 2 lpm NC; ha1 16:10 Body Mass Index 27.80 (60.33 kg, 147.32 cm) cm10 16:10 Pain Scale: Adult cm10 MDM: 15:50 Medical Screening Exam initiated kb 17:00 Data reviewed: vital signs, nurses notes. kb 17:00 Historians other than the Patient: Daughter/Son: daughter. kb 17:02 Differential diagnosis: UTI, pulmonary edema, pneumonia. kb 17:17 Transition of care: After a detail discussion of the patient's case, care is kb transferred to Cameron MOODY. 19:33 I considered the following discharge prescriptions or medication management in the emergency department Medications were administered in the Emergency Department. See MAR. 19:33 Independent interpretation of the following test(s) in the Emergency Department EKG: cp See my EKG interpretation above. Counseling: I had a detailed discussion with the patient and/or guardian regarding the historical points, exam findings, and any diagnostic results supporting the discharge/admit diagnosis, lab results, radiology results, the need for further work-up and treatment in the hospital. Response to treatment: the patient's symptoms have mildly improved after treatment. 19:40 Management of patient was discussed with the following: Primary Care Provider: DR Matt galvan who will admit after discussion. 07/07 16:18 Order name: Basic Metabolic Panel; Complete Time: 17:40 kb 07/07 16:18 Order name: CBC with Diff; Complete Time: 17:19 kb 07/07 17:20 Interpretation: Normal except: WBC 11.00; NEW% 75.8; NEUT A 8.3. cp 07/07 16:18 Order name: Magnesium; Complete Time: 17:40 kb 07/07 18:25 Interpretation: Reviewed. 07/07 16:18 Order name: NT PRO-BNP; Complete Time: 17:40 kb 07/07 18:25 Interpretation: Reviewed. 07/07 16:18 Order name: PT-INR; Complete Time: 17:14 kb 07/07 16:18 Order name: Troponin HS; Complete Time: 17:40 kb 07/07 16:18 Order name: UA Rfx Torey Cult if indicated; Complete Time: 19:27 kb 07/07 19:27 Interpretation: Normal except: [facility] Extremely Turbid; UBILI 1+; UBLD 3+; UPROT 3+; cp UUROB 2+; UNIT 1+; UESTR 75; UWBC 10-20; URBC >50. 07/07 17:18 Order name: Magnesium; Complete Time: 18:23 07/07 19:20 Order name: Urine Culture EDGA 07/07 21:05 Order name: Basic Metabolic Panel EDMS 07/07 21:05 Order name: Basic Metabolic Panel EDMS 07/07 21:05 Order name: CBC with Automated Diff EDMS 07/07 21:05 Order name: CBC with Automated Diff EDMS 07/07 21:05 Order name: NT PRO-BNP EDMS 07/07 21:05 Order name: NT PRO-BNP EDMS 07/07 21:05 Order name: Troponin High Sensitivity EDGA 07/07 16:18 Order name: XRAY Chest (1 view); Complete Time: 18:23 kb 07/07 18:24 Interpretation: Report review. 07/07 17:18 Order name: CT Chest For PE Angio; Complete Time: 19:27 07/07 17:19 Order name: US Extremity Venous W Compression Chris; Complete Time: 18:56 07/07 18:56 Interpretation: Report reviewed. 07/07 21:05 Order name: CONS Physician Consult EDGA 07/07 16:18 Order name: Cardiac monitoring; Complete Time: 16:20 kb 07/07 16:18 Order name: EKG - Nurse/Tech; Complete Time: 16:42 kb 07/07 16:18 Order name: IV Saline Lock; Complete Time: 16:42 kb 07/07 16:18 Order name: Labs collected and sent; Complete Time: 16:42 kb 07/07 16:18 Order name: O2 Per Protocol; Complete Time: 16:20 kb 07/07 16:18 Order name: O2 Sat Monitoring; Complete Time: 16:20 kb EC:59 Rate is 80 beats/min. Rhythm is regular. QRS Slovan is Normal. NH interval is normal at kb 152 msec. QRS interval is normal at 72 msec. QT interval is normal at 452 msec. Administered Medications: 17:33 Drug: DuoNeb Nebulize (2.5 mg - 0.5 mg) 3 ml Nebulizer once Route: Nebulizer; mb9 18:27 Follow up: Response: No adverse reaction mb9 18:51 Drug: MethylPrednisoLONE IVP 125 mg IVP once Route: IVP; Site: right forearm; bp 19:10 Follow up: Response: No adverse reaction ha1 19:55 Drug: Rocephin IV 1 grams IV at calculated rate once; Given slow IV push per pharmacy ha1 instructions Route: IV; Rate: calculated rate; Site: left antecubital; 20:20 Follow up: Response: No adverse reaction; IV Status: Completed infusion ha1 20:03 Drug: Zithromax IVPB 500 mg IVPB once over 1 hrs; mix in 250 mL NS Route: IVPB; Infused ha1 Over: 1 hrs; Site: left antecubital; 22:55 Follow up: Response: No adverse reaction; IV Status: Completed infusion ha1 Disposition: 07/08 22:20 Co-signature as Attending Physician, Cameron Robb MD I agree with the assessment and tashia plan of care. Disposition Summary: 07/07/24 19:39 Hospitalization Ordered Notes: Hospitalization Status: Inpatient Admission cp Provider: Simon Gutierrez cp Location: Telemetry/MedSurg (Inpatient) cp Condition: Stable cp Problem: new cp Symptoms: have improved cp Bed/Room Type: Standard cp Room Assignment: 223(07/07/24 21:28) kmf Diagnosis - Pneumonia, unspecified organism cp - UTI/ Urinary tract infection, site not specified cp Forms: - Medication Reconciliation Form cp - SBAR form cp - Leadership Thank You Letter cp Signatures: Dispatcher [employer] Marium Syed, MARGIE DUMONT-Cameron Gibson MD MD cha Page, Corey, PA PA cp Scott Baird RN RN bp Philly Rankin RN RN ha1 Ximena Narayan RN RN mb9 Geovanna Loco RN RN cm10 Luanne Padilla kmf Corrections: (The following items were deleted from the chart) 07/07 16:13 16:13 PMHx: Hypertensive disorder; cm10 cm10 16:18 16:18 BASIC METABOLIC PANEL+C.LAB.BRZ ordered. EDMS EDMS 16:18 16:18 CBC+H.LAB.BRZ ordered. EDMS EDMS 16:18 16:18 MAGNESIUM+C.LAB.BRZ ordered. EDMS EDMS 16:18 16:18 PROBNP+C.LAB.BRZ ordered. EDMS EDMS 16:18 16:18 PROTIME (+INR)+COAG.LAB.BRZ ordered. EDMS EDMS 16:18 16:18 Troponin High Sensitivity+C.LAB.BRZ ordered. EDMS EDMS 16:18 16:18 UA Rfx Torey Cult if indicated+U.LAB.BRZ ordered. EDMS EDMS 16:18 16:18 Chest Single View+RAD.RAD.BRZ ordered. EDMS EDMS 21:28 19:39 cp kmf
--- NOTE | 2024-07-07 19:39 | ER ---
Nurse's Notes [facility] Name: Juliann Shelton Age: 88 yrs Sex: Female : 1935 Arrival Date: 07/07/2024 Time: 15:39 Bed 2 Private MD: Diagnosis: Pneumonia, unspecified organism;UTI/ Urinary tract infection, site not specified Presentation: 07/07 16:10 Chief complaint: Chief complaint: Patient's son or daughter states: Sent to ER from [facility] for low O2 sat. Patient's daughter states that they went for dysuria and urinary frequency and pt received ABX. Pt's daughter states that O2 sats have been in the 80s all week. 16:10 Coronavirus screen: Client denies travel out of the [place] in the last 14 days. Ebola 10 Screen: Patient denies travel to an Ebola-affected area in the 21 days before illness onset. Initial Sepsis Screen: Does the patient meet any 2 criteria? No. Patient's initial sepsis screen is negative. Does the patient have a suspected source of infection? No. Patient's initial sepsis screen is negative. Risk Assessment: Do you want to hurt yourself or someone else? Patient reports no desire to harm self or others. Onset of symptoms was July 07, 2024. 16:10 Method Of Arrival: Wheelchair cm10 16:10 Acuity: JOEY 3 cm10 Triage Assessment: 16:13 General: Appears in no apparent distress. comfortable, Behavior is calm, cooperative. cm10 Neuro: No deficits noted. Level of Consciousness is awake, alert, obeys commands, Oriented to person, place, time, situation, Appropriate for age. Respiratory: No deficits noted. Airway is patent Respiratory effort is even, unlabored, Respiratory pattern is regular, symmetrical. Historical: - Allergies: 16:13 Ciprofloxacin; cm10 - PMHx: 16:13 chronic back pain; restless leg; Atrial fibrillation; cm10 - PSHx: 16:13 bilateral ankle; bilateral feet; Right knee replacement; Total abdominal hysterectomy; cm10 - Immunization history:: Adult Immunizations up to date. - Infectious Disease History:: Denies. - Social history:: Smoking status: unknown. Screenin:43 [facility] ED Fall Risk Assessment (Adult) History of falling in the last 3 months, mb9 including since admission No falls in past 3 months (0 pts) Confusion or Disorientation No (0 pts) Intoxicated or Sedated No (0 pts) Impaired Gait No (0 pts) Mobility Assist Device Used No (0 pt) Altered Elimination No (0 pt) Score/Fall Risk Level 0 - 2 = Low Risk Oriented to surroundings, Maintained a safe environment, Educated pt \T\ family on fall prevention, incl call for assistance when getting out of bed. Abuse screen: Denies threats or abuse. Nutritional screening: No deficits noted. Tuberculosis screening: No symptoms or risk factors identified. Assessment: 16:42 General: Appears uncomfortable, Behavior is calm, cooperative. Pain: Denies pain. mb9 Neuro: Level of Consciousness is awake, alert, obeys commands, Oriented to person, place, time, situation, Appropriate for age. Cardiovascular: Heart tones S1 S2 present Patient's skin is warm and dry. Respiratory: Reports shortness of breath Airway is patent Respiratory effort is even, unlabored, Respiratory pattern is regular, symmetrical. GI: Abdomen is flat, non-distended. : Reports being trreated for UTI. EENT: No signs and/or symptoms were reported regarding the EENT system. Derm: Skin is pink, warm \T\ dry. Musculoskeletal: Range of motion: intact in all extremities. 18:27 Reassessment: No changes from previously documented assessment. Patient and/or family mb9 updated on plan of care and expected duration. Pain level reassessed. Patient is alert, oriented x 3, equal unlabored respirations, skin warm/dry/pink. 19:20 General: Appears comfortable, Behavior is calm, cooperative. Pain: Denies pain. Neuro: ha1 Level of Consciousness is awake, alert, obeys commands, Oriented to person, place, time, situation, Appropriate for age. Cardiovascular: Capillary refill < 3 seconds Patient's skin is warm and dry. Respiratory: Airway is patent Respiratory effort is even, unlabored, Respiratory pattern is regular, symmetrical. GI: Abdomen is non-distended. : Reports incontinence. Derm: Skin is pink, warm \T\ dry. Musculoskeletal: Circulation, motion, and sensation intact. 20:36 Reassessment: Patient appears in no apparent distress at this time. No changes from vc1 previously documented assessment. Patient and/or family updated on plan of care and expected duration. Pain level reassessed. Patient is alert, oriented x 3, equal unlabored respirations, skin warm/dry/pink. Vital Signs: 16:10 BP 132 / 76; Pulse 88; Resp 18; Temp 97.7(O); Pulse Ox 87% on R/A; Weight 60.33 kg; cm10 Height 4 ft. 10 in. ; Pain 0/10; 17:22 BP 147 / 68; Pulse 81; Resp 18; Pulse Ox 95% on 2 lpm NC; mb9 19:01 Pulse 79; Resp 18; Pulse Ox 93% on 2 lpm NC; mb9 20:35 BP 152 / 76; Pulse 83; Resp 22; Pulse Ox 94% ; vc1 21:30 BP 147 / 74; Pulse 81; Resp 17 S; Pulse Ox 95% on 2 lpm NC; ha1 22:20 BP 144 / 78; Pulse 82; Resp 18 S; Pulse Ox 96% on 2 lpm NC; ha1 16:10 Body Mass Index 27.80 (60.33 kg, 147.32 cm) cm10 16:10 Pain Scale: Adult cm10 ED Course: 15:43 Patient arrived in ED. gl 15:50 Marium Trujillo FNP-C is PHCP. kb 15:50 Cameron Robb MD is Attending Physician. kb 16:13 Triage completed. cm10 16:13 Arm band placed on right wrist. Patient placed in waiting room. cm10 16:18 Ximena Narayan, RN is Primary Nurse. mb9 16:42 Basic Metabolic Panel Sent. mb9 16:42 CBC with Diff Sent. mb9 16:42 Magnesium Sent. mb9 16:42 NT PRO-BNP Sent. mb9 16:42 PT-INR Sent. mb9 16:42 Troponin HS Sent. mb9 16:43 Bed in low position. Call light in reach. Side rails up X 1. Provided Education on: mb9 press call light if needing anything. Client placed on continuous cardiac and pulse oximetry monitoring. NIBP monitoring applied. satellite project site monitor on. 17:16 PHCP role handed off by Marium Trujillo FNP-C cp 17:16 Cameron Connor PA is PHCP. cp 17:32 XRAY Chest (1 view) In Process Unspecified. EDMS 18:03 US Extremity Venous W Compression Chris In Process Unspecified. EDMS 18:27 No provider procedures requiring assistance completed. mb9 18:38 CT Chest For PE Angio In Process Unspecified. EDMS 19:37 Simon Gutierrez MD is Hospitalizing Provider. cp 19:50 Inserted saline lock: 22 gauge in right wrist, using aseptic technique. Flushed with 10 ha1 mL NS. 20:55 Primary Nurse role handed off by Ximena Narayan RN ha1 20:55 Philly Rankin RN is Primary Nurse. ha1 23:11 Patient admitted, IV remains in place. ha1 Administered Medications: 17:33 Drug: DuoNeb Nebulize (2.5 mg - 0.5 mg) 3 ml Nebulizer once Route: Nebulizer; mb9 18:27 Follow up: Response: No adverse reaction mb9 18:51 Drug: MethylPrednisoLONE IVP 125 mg IVP once Route: IVP; Site: right forearm; bp 19:10 Follow up: Response: No adverse reaction ha1 19:55 Drug: Rocephin IV 1 grams IV at calculated rate once; Given slow IV push per pharmacy ha1 instructions Route: IV; Rate: calculated rate; Site: left antecubital; 20:20 Follow up: Response: No adverse reaction; IV Status: Completed infusion ha1 20:03 Drug: Zithromax IVPB 500 mg IVPB once over 1 hrs; mix in 250 mL NS Route: IVPB; Infused ha1 Over: 1 hrs; Site: left antecubital; 22:55 Follow up: Response: No adverse reaction; IV Status: Completed infusion ha1 Medication: 18:27 VIS not applicable for this client. mb9 Outcome: 19:39 Decision to Hospitalize by Provider. cp 23:11 Admitted to Med/surg accompanied by tech, via stretcher, room 223, with chart, ha1 23:11 Condition: stable 23:11 Instructed on the need for admit, Demonstrated understanding of instructions, 23:12 Patient left the ED. ha1 Signatures: Dispatcher [employer] EDMS Marium Trujillo FNP-C FNP-Cameron Ramirez PA PA cp Peltier, Brian RN RN bp Lyla Ferris RN RN vc1 Philly Rankin RN RN ha1 Ximena Narayan RN RN mb9 Geovanna Loco RN RN cm10 Amirah Neil, Reg Reg gl Corrections: (The following items were deleted from the chart) 16:13 16:10 Chief complaint: cm10 cm10 16:13 16:13 PMHx: Hypertensive disorder; cm10 cm10 16:14 16:10 Chief complaint: Patient's son or daughter states: Sent to ER from [facility]gent [facility] for low O2 sat. Patient's daughter states that they went for dysuria and urinary frequency and pt received ABX. Pt's daughter states that O2 sats have been in the 80s all week. Chief complaint: Patient's son or daughter states: Sent to ER from Urgent Care for low O2 sat. Patient's daughter states that they went for dysuria and urinary frequency and pt received ABX. Pt's daughter states that O2 sats have been in the 80s all week. 10 23:15 20:20 Response: No adverse reaction ha1 ha1
[2024-07-07] MEDS ORDERED: NA CHLORIDE 0.9% 250 ML ONE (19:49)
[2024-07-07] MEDS ORDERED: CEFTRIAXONE 1000 MG/VIAL ONE (19:49)
[2024-07-07] MEDS ORDERED: AZITHROMYCIN 500 MG INJ IVPB ONE (19:49)
[2024-07-07] MEDS ORDERED: ONDANSETRON 4 MG/2 ML VIAL IV PRN (21:01)
[2024-07-08 00:20] VITALS: BMI 27.8
[2024-07-08] MEDS: METHYLPREDNISOLONE 40 MG INJ IV SCH (00:27)
[2024-07-08] MEDS: IPRATROPIUM BROM 0.5MG/2.5ML NEB SCH (00:55)
[2024-07-08] MEDS: ALBUTEROL 2.5 MG/3 ML NEB SOL NEB SCH (00:55)
[2024-07-08 05:48] LABS: Absolute Lymphocytes (CBC) 1.5 K/uL (0.7-4.9); Absolute Monocytes 0.1 K/uL (0.1-1.3); Basophils % 0.1 % (0-1.3); Hematocrit 37.8 % (36.0-45.0); Hemoglobin 12.8 g/dL (12.0-15.0); Lymphocytes % 19.4 % (15.3-44.8); MCH 31.2 pg (27.0-35.0); MCHC 33.9 g/dL (32.0-36.0); MCV 92.2 fL (80-100); MPV 7.5 fL (7.6-11.3); Monocytes % 0.9 % (3.3-12.3); Neutrophils % 79.6 % (41.7-73.7); Nucleated Red Blood Cells % 0.1 % (0-0); Platelets 285 thou/uL (152-406); Red Cell Distribution Width 13.1 % (12.1-15.2)
[2024-07-08 06:43] LABS: Anion Gap 8.7 mEq/L (5.0-15.0); Potassium 3.7 mEq/L (3.5-5.1)
[2024-07-08] MEDS ORDERED: FLU (Fluarix Triv) TS24-25(6MOS UP)/PF 45 MCG/0.5 ML Syringe IM ONE (07:15)
[2024-07-08] MEDS: ACETAMINOPHEN 500 MG TAB PO PRN (07:28)
[2024-07-08] MEDS: CEFTRIAXONE 1,000 MG in NA CHLORIDE 0.9% 50 ML IVPB SCH (08:51)
[2024-07-08] MEDS: ASPIRIN EC 81 MG TAB PO SCH (08:51)
[2024-07-08] MEDS: AZITHROMYCIN IV 250 MG in NA CHLORIDE 0.9% 250 ML IVPB SCH (09:00)
[2024-07-08] MEDS ORDERED: TRAMADOL 37.5mg/APAP 325mg PER TAB PO PRN (09:38)
[2024-07-08] MEDS: GABAPENTIN 400 MG CAP PO SCH (10:25)
[2024-07-08] MEDS: LACTOBACILLUS/ACIDOPHILUS TAB PO SCH (10:25)
--- NOTE | 2024-07-08 10:29 | P.CNS ---
Date of Consult: 07/08/24 Reason for Consult: Hypoxemia UTI Chief Complaint: Hypoxemia History of Present Illness: Patient is 88 years of age history obtained obtained from her daughter apparently she has had low oxygen sats for the past week was evaluated in urgent care was found to have some abnormalities on her chest x-ray and symptoms of UTI was sent to the emergency room and was admitted patient has been borderline hypoxic no prior history of pulmonary complaints has never smoked history of A- fib otherwise very active no other baseline complaints Allergies ciprofloxacin Allergy (Verified 05/06/23 15:48) Itching Home Medications: Gabapentin 2 cap PO BID 05/01/23 Tramadol HCl/Acetaminophen [Tramadol-Acetaminophn 37.5-325] 2 tab PO BID PRN 05/01/23 Diphenhydramine HCl [Benadryl] 100 mg PO BEDTIME 02/13/24 Apixaban [Eliquis] 2.5 mg PO BID #60 tablet 02/14/24 Cefuroxime [Ceftin*] 250 mg PO BID #14 tab 02/14/24 Cholecalciferol (Vitamin D3) [Vitamin D3] 5,000 units PO DAILY 07/07/24 Cranberry Fruit Extract [Ellura] 36 mg PO DAILY 07/07/24 Ferrous Sulfate [Slow Release Iron] 45 mg PO DAILY 07/07/24 L. Rham,Para/B. Lactis/Vit C [Probiotic Digestive Support Cp] 1 each PO DAILY 07/07/24 Mecobalamin [B12 Active] 3,000 mcg PO 07/07/24 Sennosides [Perdiem] 30 mg PO BEDTIME 07/07/24 Sotalol HCl [Betapace*] 80 mg PO BID 6AM 6PM 07/07/24 - Past Medical/Surgical History Diabetic: No -: Chronic back pain -: Symptomatic anemia -: Restless leg syndrome -: Hysterectomy - Social History Smoking Status: Unknown if ever smoked Alcohol use: No CD- Drugs: No Place of Residence: Home Review of Systems 10-point ROS is otherwise unremarkable General: Weakness Respiratory: Shortness of Breath Physical Examination Temp Pulse Resp BP Pulse Ox 97.7 F 87 20 184/77 H 92 07/08/24 08:00 07/08/24 08:00 07/08/24 08:00 07/08/24 08:00 07/08/24 08:00 General: Alert, In no apparent distress, Oriented x3 Respiratory: Clear to auscultation bilaterally, Normal air movement Cardiovascular: No edema, Normal pulses, Regular rate/rhythm Gastrointestinal: Normal bowel sounds, Soft and benign Musculoskeletal: No clubbing, No swelling Laboratory Data (last 24 hrs) 07/07/24 07/07/24 07/07/24 16:38 16:38 16:38 WBC 11.00 H Hgb 13.1 Hct 38.8 Plt Count 286 PT 12.9 INR 1.14 Sodium 136 Potassium 3.6 BUN 18 Creatinine 0.92 Glucose 115 H Magnesium 1.9 07/07/24 16:30 WBC Hgb Hct Plt Count PT INR Sodium Potassium BUN Creatinine Glucose Magnesium 1.9 - Problems (1) Hypoxia Current Visit: No Status: Acute Plan: Patient is 88 years of age admitted with mild hypoxemia there is no significant changes on CAT scan with possible some left lower lobe bronchiectasis very minimal no evidence of pneumonia labs chemistries reviewed white count is now normal we will check an ABG I am not sure if the pulse oximeter is very accurate await urinary cultures DC steroids continue with Rocephin for now there is evidence of urinary tract infection
[2024-07-08] MEDS: APIXABAN 2.5 MG TABLET PO SCH (10:50)
[2024-07-08] MEDS: LEVALBUTEROL 0.63 MG/3 ML NEB NEB SCH (14:08)
[2024-07-08] MEDS: SOTALOL HCL 80 MG TAB PO SCH (17:43)
--- NOTE | 2024-07-08 20:59 | P.HP ---
Patient History Date of Service: 07/08/24 Reason for admission: Hypoxemia History of Present Illness: KATHRINE HAS BEEN WEAK FOR A WEEK, HER URINE HAS AND ODOR AND LAST TWO DAYS SHE HAS BURNING OF URINATION. SHE HAS HAD LOW OXYGEN SATURATION OFF AND ON AND HAS NOT SMOKED BEFORE. HER CT ANGIOGRAM IS NEGATIVE FOR PE. Allergies ciprofloxacin Allergy (Verified 05/06/23 15:48) Itching Home medications list reviewed: Yes Home Medications: Gabapentin 2 cap PO BID 05/01/23 Tramadol HCl/Acetaminophen [Tramadol-Acetaminophn 37.5-325] 2 tab PO BID PRN 05/01/23 Diphenhydramine HCl [Benadryl] 100 mg PO BEDTIME 02/13/24 Apixaban [Eliquis] 2.5 mg PO BID #60 tablet 02/14/24 Cefuroxime [Ceftin*] 250 mg PO BID #14 tab 02/14/24 Cholecalciferol (Vitamin D3) [Vitamin D3] 5,000 units PO DAILY 07/07/24 Cranberry Fruit Extract [Ellura] 36 mg PO DAILY 07/07/24 Ferrous Sulfate [Slow Release Iron] 45 mg PO DAILY 07/07/24 L. Rham,Para/B. Lactis/Vit C [Probiotic Digestive Support Cp] 1 each PO DAILY 07/07/24 Mecobalamin [B12 Active] 3,000 mcg PO 07/07/24 Sennosides [Perdiem] 30 mg PO BEDTIME 07/07/24 Sotalol HCl [Betapace*] 80 mg PO BID 6AM 6PM 07/07/24 - Past Medical/Surgical History Has patient received pneumonia vaccine in the past: Yes Diabetic: No -: Chronic back pain -: Symptomatic anemia -: Restless leg syndrome -: HISTORY OF A FIB -: HISTORY OF HYPOXIA FOR COPD POSSIBLE, NON SMOKER -: RECURRENT UTI -: Hysterectomy - Social History Smoking Status: Never smoker Alcohol use: No CD- Drugs: No Place of Residence: Home Review of Systems 10-point ROS is otherwise unremarkable General: Weakness, As per HPI Physical Examination - Vital Signs Temperature: 98.8 F Blood Pressure: 134/64 Pulse: 80 Respirations: 20 Pulse Ox (%): 92 - Physical Exam General: Alert, In no apparent distress (AFTER A DAY OF ANTIBIOTICS AND STEROIDS SHE IS 200% BETTER PER DAUGHTER.) HEENT: Atraumatic, PERRLA, Mucous membr. moist/pink, EOMI, Sclerae nonicteric Neck: Supple, 2+ carotid pulse no bruit, No LAD, Without JVD or thyroid abnormality Respiratory: Clear to auscultation bilaterally, Normal air movement Cardiovascular: Regular rate/rhythm, Normal S1 S2 Gastrointestinal: Normal bowel sounds, No tenderness Musculoskeletal: No tenderness Integumentary: No rashes Neurological: Normal gait, Normal speech, Normal strength at 5/5 x4 extr, Normal tone, Normal affect Lymphatics: No axilla or inguinal lymphadenopathy Assessment and Plan - Problems (Diagnosis) (1) Urinary tract infection with hematuria Current Visit: Yes Status: Acute Plan: IV ROCEPHIN CULTURE PENDING. (2) Hypoxia Current Visit: No Status: Chronic Plan: SHE MAY HAVE COPD [facility] SHE IS NON SMOKER. PFT AT DR. DINERO. - Advance Directives Does patient have a Living Will: Yes Does patient have a Durable POA for Healthcare: No
[2024-07-08] MEDS ORDERED: GABAPENTIN 400 MG CAP PO SCH (21:00)
[2024-07-08] MEDS ORDERED: APIXABAN 2.5 MG TABLET PO SCH (21:00)
[2024-07-09 05:52] LABS: Magnesium 2.1 mg/dL (1.6-2.4); Potassium 3.6 mEq/L (3.5-5.1)
[2024-07-09 08:58] VITALS: O2SAT 95
[2024-07-09] MEDS ORDERED: VIT C PO SCH (09:00)
[2024-07-09] MEDS ORDERED: ENOXAPARIN 40 MG/0.4 ML SQ SCH (09:00)
[2024-07-09] MEDS ORDERED: [UNRECOGNIZED DRUG - OTHER] PO SCH (09:00)
[2024-07-09] MEDS ORDERED: B LACTIS PO SCH (09:00)
--- NOTE | 2024-07-09 09:13 | RAD REPORT ---
EXAMINATION: COMPLETE ABDOMINAL ULTRASOUND CLINICAL INDICATION: PAIN IN ABDOMEN TECHNIQUE: Grayscale ultrasonography of the abdomen was performed. COMPARISON: No prior exam. FINDINGS: LIVER: Heterogenous appearance of the liver parenchyma is seen with mild nodularity suggesting possib le underlying cirrhosis. Benign appearing hepatic cysts are present largest measuring 19 mm. GALLBLADDER: Cholelithiasis. BILE DUCTS: Intrahepatic and extrahepatic bile ducts appear normal. Measured near the juliet hepatis , the common bile duct is 4 mm. RIGHT KIDNEY: Moderate right-sided hydronephrosis suspected. Several renal cysts are also present. LEFT KIDNEY:. Normal in echogenicity and size. No calculus, solid mass or hydronephrosis. SPLEEN: Normal in echogenicity, with length of 8 cm. PANCREAS/AORTA: Partially obscured by bowel gas without abnormality grossly appreciated. IMPRESSION: Cholelithiasis. Moderate to significant right-sided hydronephrosis without clear etiology detected. Nodular liver contour suggests mild cirrhosis.
--- NOTE | 2024-07-09 09:41 | RAD REPORT ---
EXAMINATION: CTA CHEST PE CLINICAL INDICATION: respiratory failure TECHNIQUE: This examination was performed according to an angiographic protocol with 3D post-processi ng. This involves 3D reconstructions, MIPs, volume rendered images and/or shaded surface rendering. One or more of the following dose reduction techniques were used: Automated exposure control, adjustm ent of the mA and/or kV according to patient size, and/or iterative reconstruction. Unless otherwise specified, incidental findings do not require dedicated imaging follow-up. COMPARISON: 07/07/2024 FINDINGS: PULMONARY ARTERIES: Normal caliber. No evidence of pulmonary emboli to the subsegmental level. THORACIC AORTA: Normal caliber and configuration. LUNGS: Prominent diffuse COPD. Areas of bronchiectasis seen right middle lobe and both lung bases. PLEURA: No pleural effusion. No pneumothorax. MEDIASTINUM AND LYMPH NODES: No mediastinal mass or fluid collection. Normal size mediastinal, hilar, and axillary lymph nodes. OSSEOUS STRUCTURES AND CHEST WALL: Intact. UPPER ABDOMEN: Large hiatal hernia. Several right cystic lesions are present. IMPRESSION: No evidence of pulmonary emboli to the subsegmental level.
[2024-07-09] MEDS: POTASSIUM CL SA 10 MEQ TAB PO ONE (09:52)
--- NOTE | 2024-07-09 10:30 | RAD REPORT ---
EXAM: URINARY BLADDER ULTRASOUND COMPARISON: CLINICAL INDICATION: RETENTION OF URINE. TECHNIQUE: Multiplanar grayscale and color flow sonographic images were obtained through the pelvis for evaluation of the bladder.. FINDINGS: The prevoid volume of the bladder is 302 mL. The postvoid volume is 86 mL. The bladder wall shows no focal thickening, ureterocele or evidence of mass. No echogenic calculi. IMPRESSION: Mild post void residual..
--- NOTE | 2024-07-09 12:09 | EKG ---
Test Date: 2024-07-07 Test Time: 16:30:56 Disc Ruler Operator: MB MEASUREMENT RESULTS: Intervals: Rate: 80 NM: 152 QRSD: 72 QT: 392 QTc: 452 [place]: P: 66 NM: 152 QRS: 95 T: 87 INTERPRETIVE STATEMENTS: Normal sinus rhythm Rightward axis Septal infarct, age undetermined Abnormal ECG Compared to ECG 02/14/2024 12:06:23 Right-axis deviation now present Myocardial infarct finding now present Electronically Signed On 07-09-24 12:06:42 CDT by Santos Rodriguez
[2024-07-09 12:10] VITALS: BP 141/67; TEMP 97.7
--- NOTE | 2024-07-09 12:17 | P.DS ---
Admission Date: 07/07/24 Discharge Date: 07/09/24 Disposition: ROUTINE DISCHARGE Discharge Condition: FAIR Reason for Admission: Hypoxemia - Problems (1) Urinary tract infection with hematuria Current Visit: Yes Status: Acute (2) Hypoxia Current Visit: No Status: Chronic Brief History of Present Illness: KATHRINE HAS BEEN WEAK FOR A WEEK, HER URINE HAS AND ODOR AND LAST TWO DAYS SHE HAS BURNING OF URINATION. SHE HAS HAD LOW OXYGEN SATURATION OFF AND ON AND HAS NOT SMOKED BEFORE. HER CT ANGIOGRAM IS NEGATIVE FOR PE. Hospital Course: KATERIN HAS COPD ON CT, SHE GETS HYPOXIC WHEN SHE IS FATIGUED. DAUGHTER ALSO SAYS SHE GETS UTI WITH FOUL ODOR AND FATIGUE ONLY SS. SHE HAD THE SAME. CEFTIN FAILED. URINE SHOWS BLOOD, WBC BUT NO BACTERIA IN CULTURE. I ORDERED SONOGRAM AND IT SHOWS R RENAL HYDRONEPHOSIS. I WILL SEND HER TO UROLOGIST. SHE WILL CONT WITH DR. DINERO ALSO. HE GAVE HER AN INHALER. Vital Signs/Physical Exam: Temp Pulse Resp BP Pulse Ox 97.7 F 79 20 141/67 H 93 07/09/24 12:00 07/09/24 12:00 07/09/24 12:00 07/09/24 12:00 07/09/24 12:00 Laboratory Data at Discharge: WBC 7.60 thou/uL (4.3-10.9) 07/08/24 05:19 Hgb 12.8 g/dL (12.0-15.0) 07/08/24 05:19 Hct 37.8 % (36.0-45.0) 07/08/24 05:19 Plt Count 285 thou/uL (152-406) 07/08/24 05:19 PT 12.9 SECONDS (10-13.0) 07/07/24 16:38 INR 1.14 07/07/24 16:38 Sodium 137 mEq/L (136-145) 07/08/24 05:19 Potassium 3.6 mEq/L (3.5-5.1) 07/09/24 05:29 BUN 18 mg/dL (7-18) 07/08/24 05:19 Creatinine 0.75 mg/dL (0.55-1.02) 07/08/24 05:19 Glucose 157 mg/dL (74-106) H 07/08/24 05:19 Magnesium 2.1 mg/dL (1.6-2.4) 07/09/24 05:29 Home Medications: Gabapentin 2 cap PO BID 05/01/23 Tramadol HCl/Acetaminophen [Tramadol-Acetaminophn 37.5-325] 2 tab PO BID PRN 05/01/23 Diphenhydramine HCl [Benadryl] 100 mg PO BEDTIME 02/13/24 Apixaban [Eliquis *] 2.5 mg PO BID #60 tablet 02/14/24 Cefuroxime [Ceftin*] 250 mg PO BID #14 tab 02/14/24 Cholecalciferol (Vitamin D3) [Vitamin D3] 5,000 units PO DAILY 07/07/24 Cranberry Fruit Extract [Ellura] 36 mg PO DAILY 07/07/24 Ferrous Sulfate [Slow Release Iron] 45 mg PO DAILY 07/07/24 LGabbie Valenzuela,Para/B. Lactis/Vit C [Probiotic Digestive Support Cp] 1 each PO DAILY 07/07/24 Mecobalamin [B12 Active] 3,000 mcg PO 07/07/24 Sotalol HCl [Betapace*] 80 mg PO BID 6AM 6PM 07/07/24 Followup: Simon Gutierrez MD [Primary Care Provider] - 1-2 Weeks
--- NOTE | 2024-07-09 12:21 | P.PN ---
Subjective Date of Service: 07/09/24 Chief Complaint: Respiratory failure Subjective: Improving (Patient is improving doing well no new complaints) Review of Systems 10-point ROS is otherwise unremarkable General: Weakness Physical Examination - Vital Signs Temperature: 97.7 F Blood Pressure: 141/67 Pulse: 79 Respirations: 20 Pulse Ox (%): 93 - Physical Exam General: Alert, Oriented x3 Respiratory: Clear to auscultation bilaterally, Friction rub Cardiovascular: Regular rate/rhythm, Normal S1 S2 - Studies Microbiology Data (last 24 hrs): 07/07/24 18:20 Clean Catch Urine Mallory Count - Final No growth. 07/07/24 18:20 Clean Catch Urine - Final No growth. Assessment And Plan - Current Problems (Diagnosis) (1) Hypoxia Current Visit: No Status: Chronic Plan: Patient is 88 years of age has history of persistent hypoxemia apparently that was noted a year ago did not qualify for oxygen denies any baseline dyspnea no prior history of any pulmonary complaints has never smoked has some bronchiectasis in the left lower lobe I suspect that she may have underlying undiagnosed obstructive airways disease causing her hypoxemia she will need to be discharged on a triple inhaler outpatient evaluation with pulmonary function testing no evidence of pulmonary embolism apparently patient has right-sided hydronephrosis stable for discharge
== END 2024-07-09 12:55 | disposition home or self-care (01) | DRG 690 ==
LOC: ER 15:39 → ERHOLD 20:58 → 2ND 22:02
PROVIDERS: ADMIT Internal Medicine; ATTEND Internal Medicine
PROC: 4A033R1 Measurement of Arterial Saturation, Peripheral, Percutaneous Approach (ICD-10-PCS; principal; 2024-07-07)
DX: N13.6 Pyonephrosis (principal); I48.91 Unspecified atrial fibrillation; G25.81 Restless legs syndrome; J44.9 Chronic obstructive pulmonary disease, unspecified; R31.9 Hematuria, unspecified; Z88.1 Allergy status to other antibiotic agents; Z79.01 Long term (current) use of anticoagulants; Z96.651 Presence of right artificial knee joint; Z79.899 Other long term (current) drug therapy; Z90.710 Acquired absence of both cervix and uterus
CPT/HCPCS: 36415; 71045; 71275; 76700; 76857; 80048; 81001; 83735; 83880; 84132; 84484; 85025; 85610; 87086; 87088; 93005; 93970; 94640; 94760; 96365; 96366; 96375; 99285; J0696; J2919; J7050; J7613; J7614; J7644; Q9967